=== PATIENT | female | born 1950 | race Caucasian/White ===

== ENCOUNTER → 2018-01-22 | Outpatient (CLI) | payer OTHER | LOC: RAD 12:46 | DX: J98.11 Atelectasis (principal); J98.4 Other disorders of lung; M47.894 Other spondylosis, thoracic region ==

== ENCOUNTER 2019-02-05 15:34 | Inpatient (IN) | payer OTHER ==
[~2019-02-05] VITALS: Ht 157.5 cm; Wt 89.9 kg
[2019-02-05 15:40] VITALS: BP 192/100
[2019-02-05 17:07] LABS: ABSOLUTE NEUTROPHILS 5.1 thou/uL (1.4-8.2); BASOPHILS 0.5 % (0.0-2.0); HEMATOCRIT 40.5 % (37.0-47.0); HEMOGLOBIN 13.5 gm/dL (12.0-15.0); MCH 30.1 pg (26.0-34.0); MCHC 33.2 g/dL (28.0-37.0); MCV 90.7 fL (80.0-100.0); MONOCYTES 3.8 % (1.0-8.0); PLATELET COUNT 207 thou/uL (150-400); POLYS 76.7 % (36.0-66.0); RBC 4.46 mil/uL (4.20-5.00); RDW 14.1 % (10.5-14.5); WBC 6.7 thou/uL (4.0-11.0)
[2019-02-05 17:16] LABS: ANION GAP 9 mmol/L (7-16); BUN 16 mg/dL (7-18); CALCIUM 9.7 mg/dL (8.5-10.1); CHLORIDE 103 mmol/L (98-107); CO2 28 mmol/L (21-32); GLUCOSE 182 mg/dL (74-106); POTASSIUM 4.4 mmol/L (3.5-5.1); SODIUM 140 mmol/L (136-145)
[2019-02-05 17:22] LABS: APTT 25.2 Seconds (24.5-32.8); PROTIME 10.7 Seconds (9.3-11.4); TROPONIN-I <0.06 ng/mL (<0.06)
[2019-02-05 18:32] VITALS: BP 168/84
[2019-02-05 18:51] VITALS: BP 177/100
[2019-02-05 19:12] VITALS: BP 160/141
--- NOTE | 2019-02-05 19:12 | NUR ---
REPORT RECEIVED FROM MANJULA BIRD IN ER. PT RECEIVED ON , RM# 359, CRITICAL CARE TELEMETRY STATUS WITH DIAGNOSIS: INCREASED WEAKNESS IN FACE AND ARMS, INCREASED COMORBIDITY R/T TRAMAUTIC BRAIN INJURY. PT ALERT, TALKING. SON PRESENT PROVIDING EMOTIONAL SUPPORT. REPORT GIVEN TO MANJULA LAWSON.
[2019-02-05 19:40] VITALS: BP 175/103
[2019-02-05] MEDS ORDERED: BRIVIACT50 MG PO (19:59)
--- NOTE | 2019-02-05 23:34 | NUR ---
PATIENT WAS A NEW ADMISSION TO THE UNIT THIS SHIFT. SHE ARRIVED VIA CART FROM THE ER AND WAS TRANSFERRED TO BED WITHOUT INCIDENT. PATIENT IS ALERT AND ORIENTED TIMES FOUR BUT IS FORGETFUL AND NOT THE BEST HISTORIAN. NURSE EDUCATED HER ON HOW TO USE CALL LIGHT FOR ASSISTANCE. PATIENT IS NON COMPLIANT AND UNSURE OF MEDICATIONS THAT SHE IS SUPPOSED TO TAKE. NURSE SPOKE WITH FAMILY AND ASKED IF THEY COULD BRING LIST. MEDICATION REC IS INCOMPLETE AT THIS TIME. NURSE TO CONTINUE WORKING ON IT AND WILL REACH OUT TO FAMILY EARLY TOMORROW, WELL ALERT ONCOMING NURSE OF MED REC STATUS. NURSE TO OTHERWISE COMPLETE ADMISSION AND INITIATE PLAN OF CARE.
[2019-02-06] VITALS: BP 144/88
[2019-02-06 04:30] VITALS: BP 150/95
[2019-02-06 07:23] VITALS: BP 134/78
--- NOTE | 2019-02-06 08:34 | EKG ---
[place] [address] [facility] [place] [address] ELECTROCARDIOGRAM REPORT Name: WILLKALA Room #: 359-P ADM IN M.R.#: [id number] ������������������ Admission: 02/05/19 ������������������ Attend Phys: Valery Kennedy MD Discharge: ������������������ Date of : 52 Report #: [id number] ����������������������������������������������������������������� [id number] THIS REPORT FOR: //name// [facility] ED Test Date: 2019-02-05 Test Time: 16:08:53 Pat Name: KALA SOLIS Department: Room: 359 Gender: F Prize Fighter: CONTRERAS : 1950 Requested By: Lucio Edwards Order Number: [id number] MD: Trevor Bell Measurements Intervals [place] Rate: 72 P: 48 [place]: 148 QRS: 30 QRSD: 91 T: QT: 396 QTc: 434 Interpretive Statements Sinus rhythm Nonspecific ST and T wave abnormality Compared to ECG 09/30/2001 13:39:37 No significant change was found Electronically Signed On 02-06-2019 8:34:20 CDT by Trevor Bell [email or web address] ��������������������������������������������� <ELECTRONICALLY SIGNED> ���������������������������������������� By: Trevor Bell MD, [facility] ��������������������������������������������� 02/06/19 0834 1608 160 Trevor Bell MD, [facility] /EPI
[2019-02-06] MEDS ORDERED: REQUIP 1 MG TABL1 M1 PO (08:46)
[2019-02-06] MEDS ORDERED: SYNTHROID137 MC1 PO (08:46)
[2019-02-06] MEDS ORDERED: AMLODIPINE BESY10 MG PO (08:46)
[2019-02-06] MEDS ORDERED: ALLOPURINOL 10100 M1 PO (08:46)
[2019-02-06] MEDS ORDERED: CARVEDILOL3.125 MG PO (08:47)
[2019-02-06] MEDS ORDERED: METFORMIN HCL500 MG PO (08:47)
[2019-02-06] MEDS ORDERED: LOSARTAN POTAS100 MG PO (08:48)
[2019-02-06] MEDS ORDERED: LYRICA150 MG PO (09:08)
[2019-02-06] MEDS ORDERED: PROTONIX40 M1 PO (09:09)
[2019-02-06] MEDS ORDERED: SINGULAIR 10 MG10 M1 PO (09:09)
[2019-02-06] MEDS ORDERED: PRAVACHOL20 MG PO (09:10)
--- NOTE | 2019-02-06 11:52 | NUR ---
PATIENT SEEN THIS DATE BY DR. TORRES FOR ACUTE REHAB CONSULT. AT THIS TIME UNABLE TO DETERMINE PATIENT'S NEED/APPROPRIATENESS FOR ACTUE REHAB. WILL CONTINUE TO FOLLOW AND REASSESS ON SATURDAY.
--- NOTE | 2019-02-06 13:57 | NUR ---
ASSUMED CARE OF PT AT 0700. PT HAS BEEN A&Ox4. PT IS EXTREMELY DIFFICULT TO UNDERSTAND AT TIMES D/T SEVERE SPEECH SLURRING. PT HAS BEEN UP TO CHAIR AND TO COMMODE WITH x1 ASSIST. PT IS NSR ON TELE. MED REC HAS BEEN COMPLETED. PT STILL NEEDS TO BE SEEN BY ST. POSSIBLE ASPIRATION AFTER DRINKING WATER. ST HAS BEEN CONSULTED. AWAITING FURTHER ASSESSMENT AND DIRECTION. SPOKE WITH SON NATO ON THE PHONE AND GAVE STATUS UPDATE. HE IS VERY CONCERNED ABOUT HER MENTAL HEALTH SITUATION AND WOULD LIKE TO SPEAK WITH PSYCH PROVIDER IF POSSIBLE. PT IS NOT YET PROGRESSING TOWARD POC GOALS. WILL CONTINUE TO MONITOR AND ASSESS.
[2019-02-06 16:09] VITALS: BP 153/87
--- NOTE | 2019-02-06 16:25 | NUR ---
INITIAL ASSESSMENT: Received consult due to pt not being able to take care of herself at home. STAR reviewed chart and spoke with nursing and attending physician. Pt was admitted from home due to LUE weakness/left facial weakness and facial droop. Therapy ordered to evaluate pt for recommendation for discharge disposition. Pt with hx of TBI. STAR met with pt at bedside. Introduced role of SW. Pt is alert/orientated to self and place. Pt reports she lives at home with her father in a mobile home. There are 5-6 steps to enter. Pt has a cane and walker to assist with ambulation. Pt's PCP is DR. Alfredo Akers. SW asked if her son, Lucio, could be contacted for additional information. Pt agreed. SW discussed need for possible rehab at time of discharge. Pt agreeable. Awaiting 5N consult. STAR spoke with pt's son, Lucio, via phone. Introduced role of STAR. Pt does live with her 95 yr old father. Pt fell down a flight of stairs in September of this year and landed on her head. Pt had three brain hemorrhages and was at [facility], then their inpt acute rehab for several weeks. Pt did not have HH after discharge. Pt's son states she has been not taking her medications correctly and has been "off her rocker." Family is trying to find a place for pt and her father. They are managing okay on their own, but pt becomes angry with family if they try to help her. Per Lucio, he is pt's DPOA. Lucio requests to speak with psychiatrist regarding pt's cognitive state. No weekend discharge planned. STAR is following to assist as needed with discharge planning.
[2019-02-06 20:02] VITALS: BP 171/95
[2019-02-07] VITALS (53 sets, daily range): BP systolic 123–215; BP diastolic 11–105
--- NOTE | 2019-02-07 03:40 | NUR ---
Pt. has been up most of the night and is restless. Often in room talking to herself and can become tearful at times. Pt. anxious about having another seizure. She has been up to the recliner chair per her request and then wants to get back into the bed. Currently in the bed with bed alarm on. Pt. does not always call for assistance. Took po meds with applesauce without difficulty. Meds given for anxiety (see emar) with little relief. Up to the comode with gait belt and walker. Pt. does have continuous drooling. Po tylenol given for c/o headache (see emar) with some relief noted.
--- NOTE | 2019-02-07 05:35 | NUR ---
Entered pt. room and went to give her am meds and pt. noted to have a 3 minute focal seizure. She has been up all shift with little sleep. Bed alarm is on. Dorie PALOOM called and notified.
--- NOTE | 2019-02-07 06:20 | NUR ---
Pt. observed to have another focal seizure. Pt. not responding,eyes rolled back and facial twitching. This lasted for about 3 minutes. Call placed to neuro.
--- NOTE | 2019-02-07 06:50 | NUR ---
Dr. Del Rio returned my call and she was notified of pt. seizure activity. New orders noted (see cpoe).
--- NOTE | 2019-02-07 10:42 | NUR ---
Assumed pt care at 7am.Pt in bed with slurred speech and drooling.Assessment completed.vss but elevated bp noted.Meds given as ordered with apple sauce. Oral care done.Depakote iv given for focal seizure.Dr Del Rio here,order noted. No seizure activity noted at this time.Will continue to monitor.
--- NOTE | 2019-02-07 10:58 | HC ---
[facility] [place] [address] CONSULTATION Name: KALA SOLIS Room #: 359-P [facility] IN .R.#: [id number] Admission: 02/05/19 ������������������ Attend Phys: Valery Kennedy MD Discharge: ������������������ Date of : 51 Report #: [id number] THIS REPORT FOR: //name// CC: Alfredo Kennedy HISTORY OF PRESENT ILLNESS: The patient is a 68-year-old female with right temporal lobe evacuation and craniotomy. The patient has dysarthria as well as weakness in the left upper extremity. The patient also has seizures and had been treated with Keppra; however, the patient felt that the medication was making her crazy. She stated that her father was on the medication, and she saw what it did to him. She sees Dr. Carrillo, and apparently, she could not get a visit until April, although what I understood from her was that the visit was moved up to March. She thought she had a different seizure medication in her bag, but she did not know what it was, although I see by reading the note that there is some mention of switching the patient from Keppra to Vimpat. PAST MEDICAL HISTORY: Traumatic brain injury, diabetes, pancreatitis, gout, hyperlipidemia, asthma, hypertension, hyperthyroidism, back pain. PAST SURGICAL HISTORY: Craniotomy. MEDICATIONS: At home include Briviact 50 mg b.i.d. ALLERGIES: None. VITAL SIGNS: Temperature is 37, pulse rate 78, respiratory rate 16, blood pressure 134/78, bedside pulse oximetry 93% on room air. LABORATORY DATA: Hematology: White blood cell count 6.7, hemoglobin 13.5, hematocrit 40.5. Chemistry: Sodium 140, potassium 4.4, chloride 103, carbon dioxide 28, BUN 16, creatinine 1, glucose 182. IMAGING STUDIES: CT scan of head shows post-surgical and post-traumatic changes in the right frontotemporal area. NEUROLOGIC: Cranial nerves 2-12 are grossly intact. Motor exam demonstrates symmetrical strength in all 4 extremities with the exception of the left upper extremity where she has a mild to moderate paresis. Reflexes are trace throughout. Plantar responses are flexor. Coordination reveals intact [id number]-ly-pcay, although this is performed much more slowly on the left. IMPRESSION: This patient has a history of seizure disorder following a traumatic brain injury with subsequent evacuation and craniotomy. She has developed a focal seizure disorder. I will have to speak to her daughter because the patient tells me she is on Keppra. When I see in her chart that she [address] [address] CONSULTATION Name: KALA SOLIS Room #: 359-P [facility] IN ..#: [id number] Admission: 02/05/19 ������������������ Attend Phys: Valery Kennedy MD Discharge: ������������������ Date of : 52 Report #: [id number] is actually on Briviact, which is a cousin medication to Keppra, but tends to have fewer side effects. If she already has Briviact in her possession, she should be allowed to take this medication as it is not on formulary here. Otherwise, I can put her on lacosamide 50 mg b.i.d., but I do think given her history, she should be taking some kind of antiepileptic medication. If I am able to speak to her daughter or a family member, I will put that in my progress note for the day. ��������������������������������������������� <ELECTRONICALLY SIGNED> ���������������������������������������� By: Lynda Del Rio DO ��������������������������������������������� 02/07/19 1058 1316 1534 Lynda Del Rio DO /nt
--- NOTE | 2019-02-07 17:40 | NUR ---
TUNNEL WORKER CALLED AT 1655 FOR SEIZURE LASTING 30MIN, DESPITE MEDS GIVEN. SEE TUNNEL WORKER FLOWSHEET FOR DETAILS. PT TRANSFERED TO ICU PER DR JONES ORDER. ROOM 240.
--- NOTE | 2019-02-07 19:24 | NUR ---
PT TO ROOM 240 PER FLOOR STAFF - PT SEIZING AND UNRESPONSIVE - VSS - DR BRIGGS AND DR PANDYA UPDATED ON STATUS - ORDERS RECEIVED - DR PANDYA PRESENTED AT BEDSIDE AND PT INTUBATED - IV TEAM AT BEDSIDE AND PLACEMENT OF CENTRAL LINE COMPLETED - FAMILY IN WAITING ROOM AND UPDATED ON PT STATUS
--- NOTE | 2019-02-07 19:27 | NUR ---
CONSULTED TO PLACE A CENTRAL LINE POST INTUBATION. ORDER AND CONSENT NOTED. THE RIGHT JUGULAR WAS WIDLEY PATENT. A #6F TRIPLE LUMEN CENTRAL LINE WAS PLACED PER HOSPITAL POLICY AFTER A BEDSIDE TIMEOUT WAS COMPLETE. LINE WAS 25CM AND ADVANCED WITHOUT DIFFICULTY. A STAT CHEST XRAY ORDERED TO CONFIRM PLACEMENT. RADIOLOGIST CONFIRMED LINE IN GOOD POSITION FOR USE.
[2019-02-07 19:47] LABS: BE(vivo) -1.6 mmol/L (-2 to +3); HCO3 23.3 mmol/L (22.0-26.0); PCO2 39.9 mmHg (35.0-45.0); PO2 277.2 mmHg (80.0-100.0); pH 7.384 (7.360-7.450); sO2 99.6 % (92.0-98.0)
[2019-02-07 21:21] LABS: HEMATOCRIT 40.1 % (37.0-47.0); HEMOGLOBIN 13.1 gm/dL (12.0-15.0); MCH 29.9 pg (26.0-34.0); MCHC 32.7 g/dL (28.0-37.0); MCV 91.3 fL (80.0-100.0); RBC 4.39 mil/uL (4.20-5.00); RDW 14.1 % (10.5-14.5)
[2019-02-07 21:45] LABS: CALCIUM 9.6 mg/dL (8.5-10.1); CREATININE 1.1 mg/dL (0.6-1.0); POTASSIUM 3.7 mmol/L (3.5-5.1)
[2019-02-08] VITALS (25 sets, daily range): BP systolic 110–176; BP diastolic 59–96
[2019-02-08 04:15] LABS: BE(vivo) 0 mmol/L (-2 to +3); PCO2 37.4 mmHg (35.0-45.0); PO2 95.3 mmHg (80.0-100.0); pH 7.426 (7.360-7.450); sO2 97.5 % (92.0-98.0)
--- NOTE | 2019-02-08 06:00 | NUR ---
REMAINS INTBATED AND SEDATED. SINUS RHYTHM. AFEBRILE. NO SEIZURE ACTIVITY NOTED. BATHED. HAD ONE LARGE BROWN LIQUID STOOL TONIGHT. WILL CONT TO MONITOR
[2019-02-08 06:08] LABS: HEMATOCRIT 37.6 % (37.0-47.0); HEMOGLOBIN 12.6 gm/dL (12.0-15.0); MCH 30.5 pg (26.0-34.0); MCHC 33.3 g/dL (28.0-37.0); MCV 91.4 fL (80.0-100.0); RBC 4.12 mil/uL (4.20-5.00); RDW 13.6 % (10.5-14.5); WBC 10.6 thou/uL (4.0-11.0)
[2019-02-08 06:17] LABS: CALCIUM 9.1 mg/dL (8.5-10.1); CREATININE 0.9 mg/dL (0.6-1.0); POTASSIUM 3.3 mmol/L (3.5-5.1)
--- NOTE | 2019-02-08 17:35 | HC ---
[facility] [place] [address] CONSULTATION Name: WILLKALA D Room #: 240-P [facility] IN .R.#: [id number] Admission: 02/05/19 ������������������ Attend Phys: Valery Kennedy MD Discharge: ������������������ Date of : 52 Report #: [id number] THIS REPORT FOR: //name// CC: Alfredo Kennedy PULMONARY CONSULTATION REFERRING PHYSICIAN: Dr. Eastman REASON FOR REFERRAL: Persistent seizure, need for airway protection. HISTORY OF PRESENT ILLNESS: The patient is a 68-year-old white female who was brought to the ED yesterday due to left upper extremity weakness, left-sided facial droop, dysphagia, blurred vision, headache and increased dysarthria. She was felt to have ongoing seizure disorder. She was admitted. The patient was felt to have poor compliance to medications. This afternoon, the patient was noted to be seizing again. Significant history is notable for traumatic brain injury, undergone right temporal craniotomy. This occurred following a fall from a ladder. She was hospitalized at [facility] earlier part of this year. Following the surgery, she has residual left-sided weakness, left facial droop, dysarthria, blurred vision and dysphagia. The patient has a history of questionable behavioral disturbance. She has a history of sleep apnea, but does not wear CPAP on a regular basis, reason the strap does not fit because of recent craniotomy. PAST MEDICAL HISTORY: As mentioned above including diabetes mellitus, pancreatitis, gout, fibromyalgia, asthma, sinusitis, hypertension, chronic back pain, hypothyroidism, ANGEL on CPAP but not compliant. PAST SURGICAL HISTORY: As mentioned above. ALLERGIES: None noted. HOME MEDICATIONS: List incomplete. CURRENT MEDICATIONS: In the hospital include Coreg 3.125 mg p.o. b.i.d., trazodone 100 mg p.o. at bedtime, Glucophage 500 mg p.o. b.i.d., insulin supplements, Vimpat 200 mg IV, Ativan 1 mg p.r.n. for seizures, Norvasc 10 mg once a day, Zyprexa 2.5 mg q.6 hours p.r.n., Zofran p.r.n., Protonix 40 mg once a day, Synthroid 137 mcg p.o. every day, valproic acid 240 mg IV q.8 hours, Xanax 0.25 mg t.i.d., allopurinol 100 mg once a day. [address] [address] CONSULTATION Name: KALA SOLIS Room #: [facility]#: [id number] Admission: 02/05/19 ������������������ Attend Phys: Valery Kennedy MD Discharge: ������������������ Date of : 52 Report #: [id number] FAMILY HISTORY: Noncontributory. SOCIAL HISTORY: Nonsmoker. No history of alcohol use. REVIEW OF SYSTEMS: Deferred as the patient is actively seizing. PHYSICAL EXAMINATION: GENERAL: She has tonic-clonic movements involving her left arm, some on the right arm. Eyes are open, but not responsive. She is gurgling. VITAL SIGNS: Temperature is 99.6 degrees Fahrenheit, pulse is 96, respiratory rate is 16, blood pressure is 146/100 mmHg, saturation is 89%. HEENT: Normocephalic, atraumatic. NECK: Supple, without any lymphadenopathy or thyromegaly. CHEST: Breath sounds are fair. Poor air movement as the patient appears to be actively seizing. CARDIOVASCULAR: Normal S1, S2. There are no murmurs or gallop. There is no JVD, no carotid bruit. Pulses 2+/4+ bilaterally. ABDOMEN: Soft, nontender, no organomegaly or masses felt. GENITOURINARY: Deferred. RECTAL: Deferred. EXTREMITIES: No cyanosis, clubbing, edema. NEUROLOGIC: She appears to have partial complex seizures. LABORATORY AND DIAGNOSTIC DATA: CT head shows chronic postsurgical posttraumatic changes in the right frontotemporal region. Chest x-ray on admission was unremarkable other than mild chronic lung changes. Electrolytes are normal. WBC 6700, hemoglobin 13.5. CBC is normal. IMPRESSION: 1. Seizure disorder following traumatic brain injury status post craniotomy. The patient is felt to have focal seizure disorder. Currently, she appears to be actively seizing for the past 2 hours. 2. Traumatic brain injury following a fall as mentioned above, undergone craniotomy. 3. Diabetes mellitus. 4. History of pancreatitis. 5. Gout. 6. Hypertension. 7. Fibromyalgia. 8. History of asthma. 9. History of sleep apnea, noncompliant with the CPAP. 10. Hyperthyroidism. 11. Chronic back pain. RECOMMENDATION: We will proceed with elective intubation once we have an IV [facility] [address] [place] [address] CONSULTATION Name: KALA SOLIS Room #: 240-P [facility] IN M.R.#: [id number] Admission: 02/05/19 ������������������ Attend Phys: Valery Kennedy MD Discharge: ������������������ Date of : 52 Report #: [id number] access and able to achieve adequate sedation. May need to address sleep apnea and asthma when the patient is stable. DVT and GI prophylaxis recommended. Thank you for this consultation. ��������������������������������������������� <ELECTRONICALLY SIGNED> ���������������������������������������� By: Osito Frazier MD ��������������������������������������������� 02/08/19 1735 1823 [id number] Osito Frazier MD /nt
[2019-02-09] VITALS (25 sets, daily range): BP systolic 112–181; BP diastolic 61–96
[2019-02-09 05:49] LABS: HEMATOCRIT 33.8 % (37.0-47.0); HEMOGLOBIN 11.4 gm/dL (12.0-15.0); MCHC 33.9 g/dL (28.0-37.0); MCV 91.6 fL (80.0-100.0); RBC 3.69 mil/uL (4.20-5.00); RDW 13.9 % (10.5-14.5); WBC 8.1 thou/uL (4.0-11.0)
--- NOTE | 2019-02-09 06:00 | NUR ---
remains intubated. propofol 10 mcg. vss sinus rhythm. lungs diminished will business development engineer on right and move right leg to command. basthed. will cont to monitor
[2019-02-09 06:22] LABS: CALCIUM 8.3 mg/dL (8.5-10.1); CREATININE 0.7 mg/dL (0.6-1.0); POTASSIUM 3.3 mmol/L (3.5-5.1); TOTAL BILIRUBIN 0.4 mg/dL (<0.1-1.0); TOTAL PROTEIN 6.4 g/dL (6.4-8.2)
--- NOTE | 2019-02-09 07:59 | NUR ---
Pt TRANSFERRED TO ICU. WILL PLACE ON HOLD AND AWAIT NEW ORDERS TO RESUME WHEN APPROPRIATE
--- NOTE | 2019-02-09 08:16 | NUR ---
PATIENT WILL BE PLACED ON HOLD FOR OCCUPATIONAL THERAPY DUE TO TRANSFER TO ICU. WILL AWAIT RESUME OT ORDERS WHEN PATIENT ABLE TO PARTICIPATE.
--- NOTE | 2019-02-09 10:17 | NUR ---
SW reviewed chart and spoke with nursing and attending physician. Pt was transferred to ICU from on 02/07 due to seizure activity. Pt was intubated. Cpap trials started today. 5N is following for possible admission to inpt acute rehab, when pt is medically stable. STAR is following to assist as needed with discharge planning.
[2019-02-09 10:47] LABS: BE(vivo) -4.9 mmol/L (-2 to +3); HCO3 20.3 mmol/L (22.0-26.0); PCO2 38.2 mmHg (35.0-45.0); PO2 113.7 mmHg (80.0-100.0); pH 7.344 (7.360-7.450)
--- NOTE | 2019-02-09 15:01 | NUR ---
DYSPHAGIA THERAPY PUT ON HOLD FOLLOWING PATIENT TRANSFER TO ICU AND CURRENTLY INTUBATED. WILL AWAIT NEW ORDERS WHEN APPROPRIATE.
--- NOTE | 2019-02-09 15:17 | NUR ---
PATIENT WAS ON THE VENT AND LIGHTLY SEDATED. FOLLOWS SOME COMMANDS WITH RIGHT SIDE. VITALS STABLE, HTN AND ANTIHYPERTENSIVED ADMINISTERED. CPAP TRIAL SUCCESSFUL AND PATIENT EXTUBATED AT 1240. STRIDOR NOTED AROUND 1400, DR LEDESMA NOTIFIED AND NEW ORDERS RECEIVED FOR STEROIDS AND BIPAP. RT NOTIFIED. PATIENT PLACED ON BIPAP AND DR. LEDESMA CAME TO THE UNIT AND ROUNDED ON PATIENT. PATIENT NOW OCCASIONALLY RESTLESS BUT OTHERWISE RESTING MOST OF THE AFTERNOON ON BIPAP. WILL CONTINUE TO MONITOR CLOSELY.
[2019-02-09 17:24] LABS: MAGNESIUM 2.2 mg/dL (1.8-2.4); POTASSIUM 4.1 mmol/L (3.5-5.1)
[2019-02-10] VITALS (24 sets, daily range): BP systolic 115–183; BP diastolic 48–93
--- NOTE | 2019-02-10 02:03 | NUR ---
GCS 13-14. OPENS EYES TO VOICE, FOLLOWS COMMANDS ABLE, ORIENTED TO PERSON. SILMULTANEOUSLY DROWSY AND RESTLESS. SPEECH SLURRED AND VOICE HOARSE. DIFFICULT TO UNDERSTAND AT TIMES. ADEQUATE STRENGTH AND PURPOSEFUL MOVEMENT OF RUE AND RLE. MINIMAL MOVEMENT OF LUE AND LLE. CANNOT FOLLOW COMMANDS USING LEFT EXTREMITIES. SINUS RHYTHM ON MONITOR. ADMINISTERED HYDRALAZINE FOR SBP > 160. O2 SAT > 92%. FACE SHIELD WITH FIO2 40% IN USE. WEAK COUGH. UNABLE TO EXPECTORATE SPUTUM. LUNGS COARSE TO AUSCULTATION. NPO EXCEPT FOR MEDS AND SIPS OF WATER. PT TOO LETHARGIC FOR PO INTAKE AT THIS TIME. DYER TO DD. ADEQUATE URINE OUTPUT. VITAL SIGNS AND ASSESSMENTS DOCUMENTED. WILL CONTINUE TO MONITOR.
[2019-02-10 10:13] LABS: TSH 0.81 uIU/mL (0.358-3.740)
--- NOTE | 2019-02-10 17:23 | NUR ---
STAR reviewed chart and spoke with nursing and attending physician. Pt was extubated yesterday and on O2 via NC. Pt sitting up in the chair and has worked with therapy. 5N is following for possible admission to inpt acute rehab. STAR spoke with pt's son, Lucio, via phone to provide update. Pt's son states he is hopeful pt will go to a rehab facility, but she will not be able to return home after rehab. Pt may need LTC or AL placement. STAR is following to assist as needed with discharge planning.
[2019-02-11] VITALS (23 sets, daily range): BP systolic 134–182; BP diastolic 57–101
--- NOTE | 2019-02-11 00:23 | NUR ---
GCS 14. OPENS EYES SPONTANEOUSLY. FOLLOWS COMMANDS ABLE. FORGETFUL TO CONFUSED. ORIENTED TO SELF AND AWARE SHE IS IN THE HOSPITAL. SIMULTANEOUSLY DROWSY AND RESTLESS. LEFT SIDED FACIAL DROOP. SLURRED SPEECH, HOARSE VOICE. DIFFICULT TO UNDERSTAND AT TIMES. LIMITED MOVEMENT OF LUE AND LLE. PT UNABLE TO FOLLOW COMMANDS USING LEFT EXTREMITIES, MIMIMAL PURPOSEFUL MOVEMENT. RUE AND RLL STRONG, PT MOVES RIGHT EXTREMITIES PURPOSEFULLY AND FOLLOWS COMMANDS. SINUS RHYTHM/SINUS TACH ON MONITOR. HYDRALAZINE ADMINISTERED FOR SBP > 160. O2 SAT > 92% ON 2L PER NC. LUNGS COARSE TO AUSCULTATION. PT HAS WEAK COUGH AND IS UNABLE TO EXPECTORATE SPUTUM. PT IS STRICT NPO AFTER FAILING SPEECH EVAL ON 02/10. STANDS AND PIVOTS TO CHAIR X2 ASSIST. VITAL SIGNS AND ASSSESSMENTS DOCUMENTED. WILL CONTINUE TO MONITOR.
[2019-02-11 04:59] LABS: HEMATOCRIT 36.9 % (37.0-47.0); HEMOGLOBIN 12.4 gm/dL (12.0-15.0); MCH 30.4 pg (26.0-34.0); MCHC 33.7 g/dL (28.0-37.0); MCV 90.2 fL (80.0-100.0); RBC 4.09 mil/uL (4.20-5.00); RDW 13.8 % (10.5-14.5); WBC 10.9 thou/uL (4.0-11.0)
[2019-02-11 05:01] LABS: PLATELET COUNT 267 thou/uL (150-400)
--- NOTE | 2019-02-11 05:11 | NUR ---
INCREASED PURPOSEFUL MOVEMENT NOTED IN LUE AND LLE. PERIOD OF ANXIETY OVERNIGHT. ADMINISTERED LORAZEPAM. PT'S ANXIETY MANAGED AT THIS TIME WITHOUT OVERSEDATION.
[2019-02-11 05:25] LABS: BE(vivo) 1.1 mmol/L (-2 to +3); HCO3 24.6 mmol/L (22.0-26.0); PCO2 35.5 mmHg (35.0-45.0); PO2 66.7 mmHg (80.0-100.0); pH 7.458 (7.360-7.450); sO2 94.3 % (92.0-98.0)
[2019-02-11 05:50] LABS: ABSOLUTE NEUTROPHILS 9.3 thou/uL (1.4-8.2); ANISOCYTOSIS 1+; POIKILOCYTOSIS 1+
--- NOTE | 2019-02-11 10:30 | NUR ---
UP TO CHAIR WITH ONE ASSIST USING GAIT BELT AND WALKER. AMBULATED 3 FEET TO CHAIR WITH GOOD TOLERATION OF ACTIVITY. DOBHOFF TUBE INSERTED RIGHT NARE FOR FEEDINGS. KUB ORDERED TO CONFIRM PLACEMENT.
--- NOTE | 2019-02-11 11:22 | NUR ---
ENTERAL TUBE FEEDING PLACEMENT CONFIRMED AND STARTED VITAL HP AT 20mL/HR WITH GOAL RATE OF 55mL/HR. EEG BEING PERFORMED AT BEDSIDE.
--- NOTE | 2019-02-11 12:21 | NUR ---
SEIZURE ACTIVITY NOTED ON EEG - DR. JONES NOTIFIED AND 0.5 OF LORAZAPAM GIVEN. HUMAN RESOURCE STATISTICIAN REPORTED THAT THIS DID NOT STOP THE SEIZURE ACTIVITY ON EEG. PT DROWSY AND MUMBLING INCOMPREHENSIBLE SPEECH
--- NOTE | 2019-02-11 12:53 | NUR ---
PRN DOSE IVP HYDRALAZINE GIVEN FOR B/P 182/87
--- NOTE | 2019-02-11 20:01 | NUR ---
ASSISTED TO BSC EXPELLED MOD AMOUT LIQUID STOOL. SPEECH CONTINUES TO BE DIFFICULT TO UNDERSTAND. DENIES PAIN. DYER TO DD WITH CLEAR URINE OUTPUT.
[2019-02-12] VITALS (21 sets, daily range): BP systolic 131–205; BP diastolic 57–141
--- NOTE | 2019-02-12 00:42 | NUR ---
GCS 14. ORIENTED TO SELF, AWARE SHE IS IN THE HOSPITAL. FORGETFUL. EXTENT OF CONFUSION FLUCTUATES. LEFT FACIAL DROOP. SLURRED SPEECH. LEFT SIDED WEAKNESS. GROSS MOTOR TO LUE AND LLE. NO MOBILITY LIMITATIONS TO RUE AND RLE. STRENGTH OF LUE AND LLE HAS INCREASED IN THE PAST 24 HOURS. PERIOD OF INCREASED AGITATION AND OVERNIGHT, DURING WHICH PT BECAME FEARFUL AND PARANOID. AMINISTERED ZYPREXA. PT IS NOW CALM AND STATES THAT SHE FEELS SAFE. SINUS RHYTHM ON MONITOR. RECEIVING HYDRALAZINE FOR SBP > 160. PT TOLERATING ROOM AIR. WEAK COUGH. PT STILL UNABLE TO EXPECTORATE SPUTUM. NPO. DOBHOFF TO R NARE. VITAL HIGH PROTEIN AT 20ML/HR (GOAL 55). UP TO CHAIR AND BSC X2 ASSIST. VITAL SIGNS AND ASSESSMENTS DOCUMENTED. WILL CONTINUE TO MONITOR.
--- NOTE | 2019-02-12 10:27 | NUR ---
VASCULAR ACCES TEAM ASSESSED NEED FOR CENTRAL LINE, PT REMAINS IN ICU WITH SEVERAL MEDS. LINE REMAINS APPROPRIATE AT THIS TIME
--- NOTE | 2019-02-12 15:18 | NUR ---
SW reviewed chart and spoke with attending physician. Pt remains NPO at this time and has dobhoff in place. STAR discussed case with 5N rn rehabilitation, who will continue to follow for admission to inpt acute rehab when medically stable. Pt remains NPO. Pt may transfer out of ICU. SW is following to assist as needed with discharge planning.
[2019-02-13 04:20] VITALS: BP 187/87
--- NOTE | 2019-02-13 05:25 | NUR ---
END OF SHIFT SUMMARY: No progress toward goals at this time. Pt remains very confused and restless; pulled out RI PICC at beginning of shift. IV therapy able to regain access using ultrasound. Dobb-Mj remains patent; tube feeding titrated up to goal rate of 55 cc/hr. Pt tolerating well. Pt had two soft unformed stools this shift. Remains on room air, sat > 90%, breath sounds remain diminished. No seizures this shift. Monitor remains sinus rhythm. Pt has slept less than 2 hours this shift -- has been continuously talking to self, calling out for family or a general car yard supervisor, also has attempted OOB several times. Skin integrity remains intact. Logan patent, 1800 cc out this shift.
[2019-02-13 08:22] VITALS: BP 187/97
--- NOTE | 2019-02-13 11:44 | NUR ---
VASCULAR ACCESS TEAM CONSENT OBTAINED. DL PICC PLACED TO R BRACHIAL VEIN WITH U.S GUIDANCE PER HOSPITAL P&P. VEIN CANNULATED WITH ONE ATTEMPT. GUIDEWIRE ADVANCED EASILY. VESSEL DILATED. GUIDEWIRE REMOVED INTACT. DL PICC TRIMMED AND INSERTED TO 40CM OCM EXTERNAL. BOTH LUMENS FLUSH AND DRAW EASILY. PATIENT TOLERATED PROCEDURE WELL. CXR CONFIRMATION OF LINE PLACEMENT. PICC RELEASED FOR IMMEDIATE USE TO RN.
[2019-02-13 13:44] LABS: HEMATOCRIT 34.9 % (37.0-47.0); HEMOGLOBIN 11.8 gm/dL (12.0-15.0); MCH 30.7 pg (26.0-34.0); MCHC 33.8 g/dL (28.0-37.0); MCV 90.8 fL (80.0-100.0); PLATELET COUNT 222 thou/uL (150-400); RBC 3.84 mil/uL (4.20-5.00); RDW 13.1 % (10.5-14.5); WBC 7.7 thou/uL (4.0-11.0)
[2019-02-13 14:04] LABS: ALBUMIN 3.1 g/dL (3.4-5.0); CALCIUM 9.4 mg/dL (8.5-10.1); CREATININE 0.9 mg/dL (0.6-1.0); POTASSIUM 3.2 mmol/L (3.5-5.1); TOTAL BILIRUBIN 0.2 mg/dL (<0.1-1.0)
[2019-02-13 14:41] LABS: ABSOLUTE NEUTROPHILS 6.9 thou/uL (1.4-8.2); ANISOCYTOSIS 1+; METAMYELOCYTES 3 %
--- NOTE | 2019-02-13 15:50 | NUR ---
Message left for 5N liason regarding reevaluation for acute rehab admission. Pt was advanced to a po diet today with strict supervision. Awaiting therapy treatment today as she was not able to be seen earlier d/t picc line placement. Pt a little confused this am and pulled out IJ. More appropriate this afternoon and able to converse with staff. Will follow.
--- NOTE | 2019-02-13 16:26 | NUR ---
MANAGER ACTION REPORTED THAT PATIENT HAS BEEN STARTED ON A DIET. PATIENT DID NOT HAVE THERAPY THIS DATE. WILL REASSESS SATURDAY TO SEE HOW PATIENT IS TOLERATING/ADVANCING IN DIET, COGNITIVE/BEHAVIORAL STATUS AND FUNCTIONAL STATUS/PARTICIPATION IN THERAPY. THANK YOU FOR THIS REFERRAL.
[2019-02-13 16:30] VITALS: BP 155/100
[2019-02-13 19:25] VITALS: BP 166/97
--- NOTE | 2019-02-13 19:57 | NUR ---
ASSESSMENT CHARTED, PATIENT CONFUSED AND COMBATIVE,DOUBLE LUMEN PICC PLACED IN UPPER RIGHTARM, SEVERAL ATTEMPTS TO GET OUT OF BED, TRANSFERRED TO CHAIR, ATTEMPTED TO GET OUT. SALINE LOCK IN RIGHT FOREARM, FEEDING TUBE DC'D, PATIENT PASSED SWALLOW TEST. WILL CONTINUE TO JOSHUA
[2019-02-14] VITALS (7 sets, daily range): BP systolic 122–192; BP diastolic 66–110
--- NOTE | 2019-02-14 05:10 | NUR ---
PT NOW RESTING COMFORTABLE IN BED. PT HAS BEEN RESTLESS AND IMPULSIVE MOST OF THE SHIFT. PT SR ON MONITOR. PT NEURO STATUS REMAINS UNCHANGED. PT CONTINUES WITH MAITENANCE IVFs.
--- NOTE | 2019-02-14 15:02 | NUR ---
VSS REMAINS NSR, BP STABLE. PT REMAINS LETHARGIC TODAY, PT WILL MUMMBLE IF SHAKEN ARM VIGOROUSLY, PT GIVEN ATIVAN 1MG AT 0300, PT NOT WAKING UP SUFFICIENTLY FOR SAFE FEEDING. PT TURNED IN BED EVERY 2 HOURS, LUNGS DIMINISHED AND CLEAR. O2 SAT RA IS 92-94%, WILL CONTINUE TO MONITER AND CARE FOR PT PER PLAN OF CARE
[2019-02-15 04:14] VITALS: BP 163/93
--- NOTE | 2019-02-15 06:11 | NUR ---
ASSUMED CARE OF PT AT 1900. PT ORIENTED TO SELF. CONFUSED AND IMPULSIVE AT TIMES. PT ABLE TO FOLLOW COMMANDS. PT CONSTANTLY TALKING TO SELF. SHE DOES MAKE REASONABLE STATEMENTS AT TIMES LIKE, "I PULLED MY IV OUT," BUT OTHER TIMES PT JUST HAS WORD SALAD. VSS. MARGINAL UO. WILL CONTINUE TO MONITOR.
[2019-02-15 07:22] VITALS: BP 135/82
[2019-02-15 17:19] VITALS: BP 133/90
--- NOTE | 2019-02-15 17:24 | NUR ---
ASSUMED CARE OF PATIENT AT 0700. PATIENT IS A&O X SELF. SHE CURRENTLY HAS HER LEFT ARM IN A RESTRAINT TO KEEP HER FROM PULLING OUT HER PICC LINE. HER RIGHT ARM IS FREE AND SHE IS ABLE TO MOVE IT ABOUT. HER RESTRAINT WAS REEVALUATED Q 2 HOURS. SHE IS COMPLAINING OF A RIGHT SIDED HEADACHE AND TREATED WITH IV MORPHINE. THE MEDICATION ALLOWED HER TO GO TO SLEEP. SHE RESTED COMFORTABLY MORE OF THE DAY AND BECAME AGGITATED AROUND 1600. ACCORDING TO THE FAMILY, THIS HAS BEEN A PATTERN IN THE AFTERNOONS. THIS INFORMATION WAS PASSED ALONG TO THE DOCTOR. HER SPEECH MAKES SENSE AT TIMES HOWEVER THE MAJORITY OF THE TIME, I AM NOT ABLE TO MAKE HEADS OR TALES OF WHAT SHE IS TALKING ABOUT. PATIENT IS ON A PUREED DIET, HOWEVER SHE IS NOT FOND OF OUR FOOD. PATIENT IS TO CONTINUE WITH POC.
[2019-02-15 19:20] VITALS: BP 149/64
--- NOTE | 2019-02-16 04:07 | NUR ---
ASSESSMENT CHARTED. VSS. PT C/O RIGHT SIDE HEAD PAIN CONTROLED WITH PRN MORPHINE PER EMAR. PT GETS AGITATED AND IMPULSIVE, GRABBED MY HAND AND SPOON AND THREW THEM. TRIED TO PULL OUT DELFIN PICC BUT WAS ABLE TALK PATIENT DOWN. ALERT TO SELF, CONFUSED AND FORGETFUL, SLURRED SPEACH AT TIMES. REFUSED FOOD, TOLERATED SOME THICKENED WATER WITH MEDS. PT DID HELP TURN WHEN ASKED. FLUIDS RUNNING PER EMAR. DYER IN PLACE DRAINING YELLOW URINE. PLAN TO CONTINUE WITH POC WILL MONITOR.
[2019-02-16 06:33] VITALS: BP 164/78
[2019-02-16 08:41] VITALS: BP 175/72
--- NOTE | 2019-02-16 09:43 | NUR ---
PATIENT CARE ASSUMED AT 7AM. ASSESSMENT CHARTED, VSS, PATIENT CONFUSED, COMBATIVE, UNCOOPERATIVE, WILL NOT EAT BREAKFAST OR TAKE PO MEDS.
--- NOTE | 2019-02-16 12:31 | EEG ---
[facility] [place] [address] ELECTROENCEPHALOGRAM Name: KALA SOLIS Tiffany Room #: 202-P ADM IN M.R.#: [id number] ������������������ Admission: 02/05/19 ������������������ Attend Phys: Shell Causey Discharge: ������������������ Date of : 52 Report #: [id number] ����������������������������������������������������������������� [id number] THIS REPORT FOR: //name// CC: Alfredo Kennedy DATE OF SERVICE: 02/11/2019 This patient is being evaluated for the possibility of seizure. EEG was done by placing the electrode by standard 10-20 system of electrode placement. Both referential and sequential montages were used for recording. Background activity on the left side is about 9 Hz and 25 microvolt. On the right side, the EEG is poorly formed. It appeared to be showing spike and slow wave activity. Part of the activities shown on the right side is breach rhythm, but epileptiform activity appeared to be present on top of that. The patient did go to sleep that is associated with bilateral slowing and vertex sharp waves. IMPRESSION: This is an abnormal EEG because it demonstrate epileptiform activity arising from the right cerebral hemisphere. Epileptiform activity is always difficult to tell when breach rhythm is present as is in this patient, but this EEG does appear to be showing epileptiform activity in addition to breach rhythm. Clinical correlation is recommended. Thank you very much for this referral. ���������������������������������������� <ELECTRONICALLY SIGNED> ���������������������������������������� By: Minesh Hernandes MD ��������������������������������������������� 02/16/19 1231 [id number] 0718 Minesh Hernandes MD /steff
--- NOTE | 2019-02-16 14:31 | NUR ---
Discharge Planning: dp sent an initial referral to [facility] fax [phone]. DP will can facility to make sure they received.
[2019-02-16 16:00] VITALS: BP 162/92
--- NOTE | 2019-02-16 16:32 | NUR ---
STAR reviewed chart and spoke with nursing and attending physician. Pt is out of restraints and is progressing towards goals for discharge. STAR discussed case with certified rehabilitation counselor, who has been following for admission to in acute rehab. Pt was unable to work with therapy earlier today. Awaiting decision from if they are able to accept pt. STAR spoke with pt's son, Lucio, via phone to provide update. STAR discussed alternate in acute rehab options, should not be able to accept pt. Options provided. Pt's son is agreeable with [facility] and requests psych be consulted at rehab. transportation planner faxed referrals. STAR contacted [facility] liaison, who states that kiel does not see pts at their facilities. STAR discussed with THANIA friedman, who states that psych can be consulted. THANIA is able to accept pt and will submit for insurance authorization tomorrow if is unable to accept. STAR updated pt's nurse and attending physician. STAR is following to assist as needed with discharge planning.
--- NOTE | 2019-02-16 17:04 | NUR ---
PATIENT SEEN BY DR. TORRES THIS AM. PATIENT IS NOT APPROPRIATE AT THIS TIME FOR ACUTE REHAB ADMISSION. 5N WILL CONTINUE TO FOLLOW AND PATIENT WILL BE CONSIDERED AGAIN FOR A CANDIDATE ONCE PATIETN IS EATING BETTER AND IS ABLE TO CONSISTENTLY COOPERATE WITH THERAPY. MEDICAL LAB TECH INSTRUCTOR INFORMED OF ABOVE. THANK YOU FOR THIS REFERRAL.
--- NOTE | 2019-02-16 18:15 | NUR ---
PATIENT HAS BECOME MORE COOPERATIVE AND CALMER, LUNCH WAS FED TO HER AND SHE ATE 1/3. EVENING MEAL SHE FED HERSELF, ATE 1/3 AND ICE CREAM.
[2019-02-16 19:57] VITALS: BP 148/72
--- NOTE | 2019-02-17 03:10 | NUR ---
ASSESSMENT CHARTED. VSS. PT AGIATED AND CONFUSED, NOT COMBATIVE TONIGHT. ABLE TO USE THERAPUTIC COMMUNICATION TO CALM PT. PT C/O R HEAD PAIN CONTROLED WITH PRN MEDS PER EMAR. PT FEED HERSELF THICKENED LIQUIDS AND TOLERATED TAKING PILLS WELL. PT HELPED TURN SELF IN BED FOR TORRI CARE. WILL CONTINUE TO MONITOR AND WITH POC.
[2019-02-17 04:54] VITALS: BP 166/79
[2019-02-17 09:16] VITALS: BP 148/69
--- NOTE | 2019-02-17 09:26 | NUR ---
ASSUMED CARE OF PT APPROX 0715, ALERT TO SELF/BDATE/PRESIDENT, HOSPITAL NAME ALEXIS. PLEASANT THUS FAR, IS NOT IMPULSIVE. ON AND . C/O PAIN GENERALIZED BY AGREEING TO THE OFFER OF TYLENOL. SEE INTERVENTION FOR ASSESSMENT, CARDIAC MONITORED. BEING MOVED TO THE CHAIR, EXHAUST MACHINE OPERATOR FED PT, SWALLOWS SUCCESSFULLY THUS FAR, SLOW W/MED ADM AND FEEDING
--- NOTE | 2019-02-17 12:26 | NUR ---
5N accepting of patient pending auth. Sp with son Lucio updated 5N accepting also updated if rec auth today then planned admission to 5n today.
[2019-02-17 12:53] VITALS: BP 158/80
[2019-02-17] MEDS ORDERED: DIVALPROEX SOD500 M1 PO (14:58)
[2019-02-17] MEDS ORDERED: ACETAMINOPHEN325 M1 PO (14:58)
[2019-02-17] MEDS ORDERED: VIMPAT100 MG PO (14:58)
[2019-02-17] MEDS ORDERED: IPRAT-ALBUT 0.5-3 ML INH (14:58)
[2019-02-17] MEDS ORDERED: COREG6.25 MG PO (14:58)
[2019-02-17] MEDS ORDERED: HYDROCODON-ACE1 EAC7 PO (14:58)
[2019-02-17] MEDS ORDERED: COLCHICINE0.6 M1 PO (14:58)
[2019-02-17] MEDS ORDERED: PEPCID20 MG PO (14:58)
[2019-02-17] MEDS ORDERED: OLANZAPINE ODT5 MG PO ×3 (14:58)
[2019-02-17] MEDS ORDERED: TRAZODONE HCL100 MG PO (14:58)
[2019-02-17] MEDS ORDERED: ENOXAPARIN40 MG/0.1 SUBQ (15:21)
--- NOTE | 2019-02-17 16:12 | NUR ---
REC ORDERS FOR PT'S D/C. WILL GIVE REPORT TO PINEDA Gaytan RN AND SEND ALL CHART INFO/DC/RX UP WITH PT WHO WILL SOON BE D/C'D, TELE WILL BE REMOVED AND AFTER REVIEW OF PO VERSUS IV MEDS, WILL REMOVE PICC LINE IF APPLICABLE
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
== END 2019-02-17 16:45 | DRG 100 ==
LOC: ER 15:34 → EROBS 18:14 → ICU 18:14 → 2N 18:14 → 3W 18:51 → ICU 02-07 17:39 → 2N 02-12 16:18 → ENTRNSPT 02-17 16:25 → 2N 02-17 16:45
PROVIDERS: Emergency Medicine; Hospitalist; Internal Medicine; Internal Medicine Pulmonary Disease; Pediatrics; Psychiatry & Neurology Neurology; ADMIT Internal Medicine
DX: G40.101 Localization-related (focal) (partial) symptomatic epilepsy and epileptic syndromes with simple partial seizures, not intractable, with status epilepticus (principal); J96.01 Acute respiratory failure with hypoxia; G92 Toxic encephalopathy; E11.9 Type 2 diabetes mellitus without complications; M10.9 Gout, unspecified; E78.5 Hyperlipidemia, unspecified; M79.7 Fibromyalgia; J45.909 Unspecified asthma, uncomplicated; I10 Essential (primary) hypertension; M54.5 Low back pain; E66.01 Morbid (severe) obesity due to excess calories; R13.10 Dysphagia, unspecified; R47.1 Dysarthria and anarthria; E87.6 Hypokalemia; G47.33 Obstructive sleep apnea (adult) (pediatric); G89.29 Other chronic pain; E05.90 Thyrotoxicosis, unspecified without thyrotoxic crisis or storm; Z87.820 Personal history of traumatic brain injury; Z68.36 Body mass index [BMI] 36.0-36.9, adult; Z91.81 History of falling; Z91.19 Patient's noncompliance with other medical treatment and regimen; Z79.899 Other long term (current) drug therapy
CPT/HCPCS: 10078; 10081; 10203; 10879; 27000

== ENCOUNTER 2019-02-17 15:18 | Inpatient (IN) | payer OTHER ==
[~2019-02-17] VITALS: Ht 157.5 cm; Wt 94.3 kg
[~2019-02-17 15:18] MED LIST: ACETAMINOPHEN325 M1 PO; ALLOPURINOL 10100 M1 PO; AMLODIPINE BESY10 MG PO; BRIVIACT50 MG PO; CARVEDILOL3.125 MG PO; COLCHICINE0.6 M1 PO; COREG6.25 MG PO; DIVALPROEX SOD500 M1 PO; HYDROCODON-ACE1 EAC7 PO; IPRAT-ALBUT 0.5-3 ML INH; LOSARTAN POTAS100 MG PO; LYRICA150 MG PO; METFORMIN HCL500 MG PO; OLANZAPINE ODT5 MG PO; PEPCID20 MG PO; PRAVACHOL20 MG PO; PROTONIX40 M1 PO; REQUIP 1 MG TABL1 M1 PO; SINGULAIR 10 MG10 M1 PO; SYNTHROID137 MC1 PO; TRAZODONE HCL100 MG PO; VIMPAT100 MG PO
[2019-02-17] MEDS ORDERED: ENOXAPARIN40 MG/0.1 SUBQ (15:21)
--- NOTE | 2019-02-17 17:50 | NUR ---
1700 ADMITTED TO ROOM 514. PATIENT IS ALERT AND ORIENTED TO PERSON, AND SON. PATIENT HAS LEFT SIDED WEAKNESS AND GOUT IN HER LEFT HAND. LUNGS ARE CLEAR AND DEMINISHED. PATIENT IS ON 02 AT 2L PER N/C. ABD IS SOFT WITH BSX4. PATIENT HAS FOLELY TO DD, DRAINING ERIC COLORED URINE. PATIENT C/O HER FEET HURTING. PAIN MEDS ARE NOT EFFECTIVE. PATIENT IS TOTAL FEED R/T GOUT IN HER LEFT HAND. EVALS TO BE DONE IN A.M. SON AT BEDSIDE. FALL AND SAFETY PROTOCOLS IN PLACE. DENIES PAIN AT THIS TIME. CALL LIGHT IN REACH. WILL CONTINUE TO MONITER.
[2019-02-17 19:45] VITALS: BP 151/69
--- NOTE | 2019-02-18 02:45 | NUR ---
PT ASSESSMENT COMPLETED AND VSS. MEDS GIVEN ORDERED AND WELL TOLERATED WITH APPLESAUSE. PT VERY CONFUSED. PT SAID REPEATEDLY THAT SHE WANTS TO . PRN PAIN MEDICATION HELPFUL FOR BACK AND HAND PAIN. REPOSITIONED FREQUENTLY USING PILLOWS FOR COMFORT. PT YELLING OUT AND TRYING TO GET UP DURING THE NIGHT. PROVIDED MUCH EMOTIONAL SUPPORT. DYER DRAINING YELLOW URINE. SLEEPING AT THIS TIME. WILL CONTINUE TO MONITOR FREQUENTLY.
[2019-02-18 05:31] LABS: HEMATOCRIT 33.4 % (37.0-47.0); HEMOGLOBIN 11.1 gm/dL (12.0-15.0); MCH 30.3 pg (26.0-34.0); MCHC 33.2 g/dL (28.0-37.0); MCV 91.4 fL (80.0-100.0); RBC 3.65 mil/uL (4.20-5.00); RDW 13.6 % (10.5-14.5); WBC 9.4 thou/uL (4.0-11.0)
[2019-02-18 05:44] LABS: CREATININE 0.8 mg/dL (0.6-1.0); POTASSIUM 3.5 mmol/L (3.5-5.1)
[2019-02-18 08:10] VITALS: BP 146/73
--- NOTE | 2019-02-18 10:00 | NUR ---
RECIEVED ORDER BY RULING MACHINE FEEDER FOR PROTECTIVE HELMET. ORDER WAS FAXED TO [facility] AND CALL PLACED. IVET AT [facility] CONFIRMED THAT SHE RECIEVED THE ORDER. RN WAS NOTIFIED THAT THIS HAS BEEN ORDERED, AND WE HAVE BEEN ADVISED THAT IT COULD TAKE 3 DAYS.
--- NOTE | 2019-02-18 10:19 | NUR ---
chart review, nitza visited with pt at bedside, she up in wheel chair, bedside nurse in room as well, pt leaning to left when up in wheel chair. pt a & o 2-3 with some forgetfulness and confusion. pt asked what city she in and if could see fire works outside tomorrow. pt reported she cares for her dad at [place], : mobile home 1-2-3 step into home. have walker, dad has walker with seat on it. was driving till this happen. daughter darlyn is taking care of dad while here. we will need some help now and i am ok with that, need more suzanne's. no hh or rehab prior to hospital. dad has had home health in past. have primary dr. manage own medication, cooking and cleaning"/suzanne. noted in chart family mention pt not taking medication at home. nursing accounts payable supervisor and bedside nurse assisted pt to bsc, pt unable to pull down own depends, rn nitza assisted and pt was able to sit on bsc, she wanted pillow behind her back, pt stated had to up restroon. ot came to work with pt as well. pt with assistance off bsc and back into wheel chair. letting pt work with ot and will cont following as needed for dc needs. left message for son lisa.
--- NOTE | 2019-02-18 15:16 | NUR ---
ASSUMED CARES AT 0700. PT SLEEPY, ORIENTED TO SELF AND PLACE ONLY, CONFUSED. SLURRED SPEECH. VITALS REMAINED STABLE. DENIES PAIN. HELMET ORDERED AND IN PLACE R/T CRANIOECTOMY OF RIGHT PARIETAL AND TEMPORAL LOBES. PT CONTINUES TO HAVE LEFT SIDED HEMIPARESIS, TENDS TO LEAN ON LEFT SIDE WHEN TRANSFERING ON IN CHAIR. MOUTH CARE DONE PARTIALLY THIS AM PT REFUSED, TONGUE REMAINS WHITE AND TEETH HAVE THICK COATING OF FOOD, CONTINUE TO ENCOURAGE ORAL CARE. PT REMAINS ON ASPIRATION PRECAUTION, NEEDS 100% WITH FEEDING AND 100% SUPERVISION WITH ALL MEALS. DYER REMAINS INTACT AND PATENT, URINE IS DARK YELLOW AND SEDIMENT NOTED, FLUSHED*1 WITH NS TO MAINTAIN PATENCY. CONTINUES TO HAVE BLE, EXTREMITIES ELEVATED. UP WITH 1-2 MIN ASSIST PIVOT TRANSFERS AND TOLERATED WELL. ROOM BY NURSE'S STATION. Q1H VISUAL CHECKS. CALL LIGHT WITHIN REACH. FALL PRECAUTIONS IN PLACE
[2019-02-18 19:20] VITALS: BP 158/74
--- NOTE | 2019-02-19 02:15 | NUR ---
assumed care at approx 1900 evening 02/18. pt lying in bed with head of bed elevated at change of shift. pt confused and talkative somewhat rambling on with inconsistent sentences. son visited for short time before hs meds given. [place] to dd with yellow urine to bag. pt took hs meds with applesauce and pt c/o pain to left hip/leg when turning. pt woke up for short time appeared to be talking in her sleep but now back to sleep. bed alarm on and call light in reach. will continue to monitor.
--- NOTE | 2019-02-19 04:46 | NUR ---
pt awoke asking for something for her nose. nasal spray given to pt to use and also given honey thick liquid for dry mouth. pt continued to be loud calling out talking repeatedly and rambling on with her words. pt repositioned and encouraged to try and get some sleep. pt continued to call out talking about her bird at home and a dog that needed to be cared for. pt given zyprexa prn as ordered. call light in reach and bed alarm on. will continue to monitor.
[2019-02-19 08:15] VITALS: BP 137/58
--- NOTE | 2019-02-19 20:16 | NUR ---
ASSUMED CARE OF PT AT 0715. PT IS A&OX1 AND VITAL SIGNS ARE STABLE. PT HAS SIGNIFICANT LEFT SIDED HEMIPARESIS, DYSARTHRIA, AND GENERALIZED NON-PITTING EDEMA. MEDICATIONS WHOLE IN APPLESAUCE, HONEY THICK LIQUIDS. ACCU CHECKSS ACHS AND MANAGED WITH PO MEDICAITONS, DYER CATHETER IN PLACE AND SECURED TO LEG. DOUBLE LUMEN PICC TO RIGHT UPPER ARM, FLUSHES APPROPRIATELY, DRESSING C/D/I, W/O S/S. PATIENT MADE MULTIPLE THREATS TO STAFF DURING SHIFT STATING THAT SHE WANTS TO KICK THEM, PUNCH THEM, AND POUR URINE ON THEM. NURSE TALKED WITH PATIENT AND REMINDED PATIENT THAT IT IS INAPPROPRIATE TO THREATEN STAFF, PATIENT AGREED TO REFRAIN FROM MAKING FURTHER THREATENING STATEMENTS TO STAFF. SEIZURE PRECAUTIONS IN PLACE FOR HX OF SEIZURES, AND FALL PRECAUTIONS IN PLACE. NURSING WILL CONTINUE TO MONITOR.
[2019-02-19 20:21] VITALS: BP 152/70
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
[2019-02-20 08:09] VITALS: BP 155/82
--- NOTE | 2019-02-20 14:54 | NUR ---
ASSUMED CARE OF PT AT 0715. NIGHT NURSE SAID PT HAD A ROUGH NIGHT. HAS TO HAVE A SITTER. PT IS A&OX1 AND VITAL SIGNS ARE STABLE. REFUSED THERAPY THIS AM. C/O HEADACHE AND GENERALIZED PAIN THIS AM. MORNING MEDS AND PRN HYDROCODONE GIVEN ONE AT THE TIME WITH APPLE SAUCE CONTINUE TO BE ON HONEY THICK LIQUIDS AND WILL START VITAL STEM WITH ST. SLEEPING MOST OF THE TIME. DR. FLANNERY AND DR. BERNSTEIN CAME TO SEE PT AND ADJUSTING MED. PT HAS SIGNIFICANT LEFT SIDED HEMIPARESIS, HAS UNSTEADY GAIT. ON SEIZURE PRECAUTION WITH PADDING ROUND BED. DYSARTHRIA, AND GENERALIZED NON-PITTING EDEMA. ACCU CHECKSS ACHS AND MANAGED WITH PO MEDICAITONS, DYER CATHETER IN PLACE AND SECURED TO LEG. DOUBLE LUMEN PICC TO RIGHT UPPER ARM, FLUSHES APPROPRIATELY, DRESSING C/D/I, W/O S/S. PATIENT CURSHING AND MADE MEAN COMMEND TO PHYSICAL THERAPIST. HOWEVER, PT AND OT ABLE TO GOT HER UP TO PHYSICAL GYM FOR AWHILE. PT HAS MODERATE LOOSE BM THIS AM. FALL PRECAUTION IN PLACE. CALL LIGHT WITHIN REACH. HAS A SITTER AT BEDSIDE FOR SAFETY.
[2019-02-20 15:18] VITALS: BP 89/43
[2019-02-20 15:27] VITALS: BP 125/59
[2019-02-20 19:00] VITALS: BP 110/48
--- NOTE | 2019-02-21 01:47 | NUR ---
ASSUMED CARE OF PT AT 1915. PT IS SLEEPING AND VITAL SIGNS ARE STABLE. PT IS AROUSABLE WITH VERBAL STIMULI AND IS ABLE TO RESPOND TO VERAL COMMANDS. PATIENT DENIES ANY PAIN AND WAS ABLE TO TAKE SCHEDULED MEDICATIONS WITH APPLESAUCE. PICC LINE IN DELFIN FLUSHES APPROPRIATELY, DRESSING C/D/I, AND W/O S/S OF COMPLICATIONS. SITTER AT BEDSIDE FOR SAFETY. SEIZURE PRECAUTIONS IN PLACE FOR HX OF SEIZURES. FALL PRECAUTIONS IN PLACE AND NURSING WILL CONTINUE TO MONITOR.
[2019-02-21 07:13] VITALS: BP 148/76
[2019-02-21 08:53] VITALS: BP 155/81
--- NOTE | 2019-02-21 14:36 | NUR ---
ASSUMED CARE OF PT AT 0715. REPORTS THAT PT SLEPT ALL NIGHT. D/C A SITTER THIS AM. PT ALERT THIS AM AND PARTICIAPTED WITH OT. OT GAVE PT SPONGE BATH AND UP TO DINNING ROOM FOR BREAKFAST. SAT 98% ON RA WHILE SHE WAS UP. PT WORKED WELL WITH THIS MOTOR GRADER OPERATOR AND SHE WAS IN GOOD SPIRIT AND TOOK ALL HER MORNING MEDS WITHOUT DIFFICULTY ABLE TO FEED HERSELF AT BREAKFAST . ST WORKED WITH PT AND AFTER SPEECH PT HAD 2X EPISODE OF EMESIS. NOTIFIED DR. WESTON ABOUT EMESIS RECEIVED ORDER FOR ZOFRAN 4MG ONE TIME NEED. PT IS A&OX1 AND VITAL SIGNS ARE STABLE. PT HAS SIGNIFICANT LEFT SIDED HEMIPARESIS, HAS UNSTEADY GAIT. ON SEIZURE PRECAUTION WITH PADDING ROUND BED. DYSARTHRIA, AND GENERALIZED NON-PITTING EDEMA. DYER CATHETER IN PLACE AND SECURED TO LEG. DOUBLE LUMEN PICC TO RIGHT UPPER ARM, FLUSHES APPROPRIATELY, DRESSING C/D/I, W/O S/S.IV TEAM CALLED AND SAID IF PT CAN HAVE ORDER TO D/C IV. NOTIFIED DR. WESTON AND HE WANTS TO KEEP PICC LINE. FALL PRECAUTION IN PLACE. CALL LIGHT WITHIN REACH. PT GETS EXHAUSTED AFTER THERAPY THIS AM. SKIP LUNCH, SAT 89% WHILE RESTING BECAUSE PT NOT TAKING DEEP BREATH. O2 AT 2L AT REST. WILL CONTINUE TO MONITOR.
[2019-02-21 19:55] VITALS: BP 108/63
--- NOTE | 2019-02-22 04:21 | NUR ---
SLEEPING WELL TONIGHT. O2 2L PNC, DYER TO DD. TAKING MEDS WHOLE WITH APPLESAUCE AND DRINKING HONEY THICKENED LIQUIDS WITH ENCOURAGEMENT. NO PRN MEDS GIVEN TONIGHT, SEIZURE PADS IN PLACE. FREQUENT OBSERVATION FACIILITATED BY PATIENT BEING IN ROOM 514 ACCROSS FROM NURSE STATION
[2019-02-22 07:32] VITALS: BP 139/67
--- NOTE | 2019-02-22 13:37 | NUR ---
ASSUMED CARE OF PT AT 0715. PT IS LETHARGIC BUT IS ORIENTED TO PERSON AND RESPONSIVE TO VERBAL COMMANDS. ACCU CHECKS BID AND MANAGED WITH PO MEDICAITONS. MEDICATIONS GIVEN WHOLE IN APPLESAUCE. PICC IN RUE DIFFICULT TO FLUSH AND DRESSING C/D/I. DYER IN PLACE, SECURED TO LEG, AND DRAINING APPROPRIATELY. PATIENT TAKING HONEY THICK LIQUIDS AND PUREE CONSISTANCIES. SEIZURE PRECAUTIONS FOR HX OF SEIZURES IN PLACE, FALL PRECAUTIONS IN PLACE AND NURSING WILL CONTINUE TO MONITOR.
[2019-02-22 19:59] VITALS: BP 101/46
--- NOTE | 2019-02-23 02:43 | NUR ---
assumed care at approx 1900 evening 02/22. pt lying in bed sleeping soundly at change of shift. 02 at 2l per n/c. [place] to dd with low output. ALMOND GRINDER paged and IVF ordered infusing at present. pt awoken for hs meds and she took with yogurt tolerating well. pt confused and mumbling in her sleep frequently tonight. seizure precautions in place. bed alarm on and call light in reach. will continue to monitor.
--- NOTE | 2019-02-23 04:43 | NUR ---
pt sleeping off and on tonight, not sleeping soundly majority of night. pt becoming more loud and vocal starting to yell out and refusing mouth care. pt pulling 02 and covers off. pt given tylenol and xyprexa as ordered as pt c/o back pain and becoming more agitated. bed alarm on and call light in reach. will continue to monitor.
[2019-02-23 07:07] VITALS: BP 153/64
[2019-02-23 09:40] LABS: HEMATOCRIT 32.7 % (37.0-47.0); HEMOGLOBIN 10.7 gm/dL (12.0-15.0); MCH 30.6 pg (26.0-34.0); MCHC 32.6 g/dL (28.0-37.0); MCV 93.8 fL (80.0-100.0); PLATELET COUNT 200 thou/uL (150-400); RBC 3.48 mil/uL (4.20-5.00); RDW 14.2 % (10.5-14.5); WBC 10.1 thou/uL (4.0-11.0)
[2019-02-23 09:46] LABS: CALCIUM 7.4 mg/dL (8.5-10.1); CREATININE 1.2 mg/dL (0.6-1.0); MAGNESIUM 1.3 mg/dL (1.8-2.4)
[2019-02-23 10:26] LABS: PLATELET ESTIMATE NORMAL
--- NOTE | 2019-02-23 12:20 | NUR ---
ASSUMED CARE OF PT AT 0700. PT IS ALERT AND ORIENTED TO PERSON, FREQUENTLY CONFUSED WITH PERIODS OF COMBATIVNESS AND AGITAITON, AND VITAL SIGNS ARE STABLE. PT DENIES PAIN AND PARTICIPATED IN ALL SCHEDULED THERAPIES. PT HAS PICC LINE TO RUE PATIENT, DRESSING C/D/I, W/O REDNESS, WARMTH, OR DRAINAGE, RUNNING NS @75ML/HR. TRANSFERS WITH 1-2 MAX ASSIST TO W/C WITH GAIT BELT, HELMET IN PLACE WHEN OUT OF BED. TOLERATES MEDICAITONS CRUSHED IN PUDDING WITH HONEY THICK LIQUIDS. EEG THIS MORNING, RESULTS PENDING, LABS DRAWN AND RESULTS REPORTED TO GEOSPATIAL EXTRACTOR ANALYSIS. SEIZURE PRECAUTIONS IN PLACE FOR HX OF SEIZURES. FALL PRECAUTIONS IN PLACE AND NURSING WILL CONTINUE TO MONITOR.
[2019-02-23 19:30] VITALS: BP 148/77
[2019-02-24 09:15] VITALS: BP 145/69
--- NOTE | 2019-02-24 10:48 | NUR ---
ASSUMED CARE AT 0700. PATIENT IS ALERT AND ORIENTED X2. PATIENT WAN'S. LUNGS ARE DEMINISHED SHEKHAR. PATIENT CONTINUES ON 02 AT 2L PER N/C. PATIENT HAS PICC LINE RIGHT UPPER ARM. IVF NA INFUSING AT 75CC/HR. PATIENT IS TO WEAR HELMET WHEN UP IN W/C. PATIENT HAS DYER TO DD, DRAINING ERIC COLORED URINE. UP IN W/C WITH ASSIST OF 2 STAFF TO DINING ROOM FOR MEALS. FALL AND SAFETY PROTOCOLS IN PLACE. DENIES ANY PAIN AT THIS TIME. PATIENT HAS LEFT SIDED WEAKNESS. CONTINUES TO PROGRESS SLOWLY TOWARDS D/C GOALS. WILL CONTINUE TO MONITER
--- NOTE | 2019-02-24 12:11 | NUR ---
team meeting, recommendation: dr villa consulted, pt cont to verbal say here dad is here when he not here visiting. pt needs to be offered honey thick liquids when up. pt is on iv fluids 75cc/hr. pt has helmet. pt working with pt, ot, st- vital stim therapy. Re-team , start looking into different plans for pd at home, and possible will need ltc. she is still working with therapy.
--- NOTE | 2019-02-24 16:36 | NUR ---
VASCULAR ACCESS NURSE ROUNDING. THIS PATIENT HAS AN ORDER FROM THE MD TO CONTINUE THE PICC LINE ACCESS.
[2019-02-24 19:10] VITALS: BP 146/70
--- NOTE | 2019-02-25 04:51 | NUR ---
BED ALARM AND WITHIN SIGHT OF DESK. TAKING MEDS WITH PUDDING, WASHED DOWN WITH GULPS OF HONEY THICK LIQUIDS. PICC LINE PATENT FOR BLOOD DRAW, RED PORT DRAWS MORE EASILY THAN THE PURPLE.
[2019-02-25 05:32] LABS: HEMATOCRIT 29.6 % (37.0-47.0); HEMOGLOBIN 10.1 gm/dL (12.0-15.0); MCH 31.3 pg (26.0-34.0); MCHC 34.2 g/dL (28.0-37.0); MCV 91.7 fL (80.0-100.0); PLATELET COUNT 179 thou/uL (150-400); RBC 3.23 mil/uL (4.20-5.00); RDW 13.6 % (10.5-14.5); WBC 7.4 thou/uL (4.0-11.0)
[2019-02-25 05:52] LABS: ALBUMIN 2.3 g/dL (3.4-5.0); CREATININE 0.7 mg/dL (0.6-1.0); MAGNESIUM 1.4 mg/dL (1.8-2.4); PHOSPHORUS 3.4 mg/dL (2.5-4.9); POTASSIUM 3.5 mmol/L (3.5-5.1)
[2019-02-25 06:30] LABS: ABSOLUTE NEUTROPHILS 5.3 thou/uL (1.4-8.2)
[2019-02-25 06:31] LABS: PLATELET ESTIMATE NORMAL
[2019-02-25 08:00] VITALS: BP 142/70
--- NOTE | 2019-02-25 15:30 | NUR ---
PT BROTHER [employer] AND DAD HERE FOR VISIT, TOOK SNF LIST AND WILL LET CM TEAM KNOW NEXT WEEK IF CHECKED SNF FACILITY IF NEEDED. CONT WITH RE TEAM NEXT WEEK. PT IS CONT TO WORK WITH THERAPY.
--- NOTE | 2019-02-25 19:10 | NUR ---
ASSUMED CARE OF PT AT 0715. PT WAS A&OX1-2 EARLY IN SHIFT BUT IMPROVED THROUGH SHIFT AND WAS A&OX4 AT DINNER, VITAL SIGNS ARE STABLE. PT TAKES MEDICAITONS WHOLE IN PUDDING WITH HONEY THICK LIQUIDS. TRANSFERS WITH 1 PERSON MOD ASSIST WITH GAIT BELT AND WALKER, HELMET ON WHEN OUT OF BED. PICC TO RUE WNL AND RUNNING MEDICAITONS AND FLUIDS. LAB RESULTS REPORTED TO PROVIDER AND ORDERS OBTAINED FOR MAGNESIUM AND DEXTROSE 5%, LABS TO BE REDRAWN ON SATURDAY. SEIZURE PRECUATIONS IN PLACE FOR HX OF SEIZURES. FALL PRECAUTIONS IN PLACE AND NURSING WILL CONTINUE TO MONITOR.
[2019-02-25 23:21] VITALS: BP 155/77
--- NOTE | 2019-02-26 04:18 | NUR ---
assumed care at approx 1900 evening 02/24. pt lying in bed with head of bed elevated at change of shift and pads in place for seizure precautions. daughter at bedside. pt on room air with 02 sat 93%. pt took hs meds with pudding tolerating well. pt restless and fussy when daughter here and continued to be therefore prn xyprexa given. pt appears to be sleeping soundly at present and will continue to monitor with hourly rounding. bed alarm on and call light in reach.
[2019-02-26 06:13] LABS: ALBUMIN 2.2 g/dL (3.4-5.0); CALCIUM 8.7 mg/dL (8.5-10.1); CREATININE 0.7 mg/dL (0.6-1.0); MAGNESIUM 1.4 mg/dL (1.8-2.4); PHOSPHORUS 3.1 mg/dL (2.5-4.9); POTASSIUM 3.5 mmol/L (3.5-5.1)
[2019-02-26 07:50] VITALS: BP 144/75
--- NOTE | 2019-02-26 15:52 | NUR ---
ASSUMED CARES AT 0700. PT ORIENTED TO SELF AND SITUATION, FORGETFUL AND CONFUSED. DENIES PAIN. VITALS REMAIN STABLE. LS CLEAR, SATS STABLE ON RA. REMAINS ON ASPIRATION PRECAUTIONS, SITTING UPRIGHT FOR ALL MEALS, MEDS WHOLE IN PUDDING AND TOLERATED WELL. SEIZURE PRECAUTIONS MAINTAINED, HELMET ON WHEN UP FROM BED AT ALL TIMES. PICC LINE ON RIGHT UPPER ARM REMAINS INTACT AND PATENT, IV MG SULFATE INFUSED AT 25ML/HR. UP WITH 1-2MIN ASSIST, AMBULATED SHORT DISTANCES. VERY SLEEPY AND LETHARGIC BETWEEN THERAPIES, STATED THAT SHE DOESN'T SLEEP WELL AT NIGHT WITHOUT HER CPAP, RT CONTACTED REGARDING SETTING UP CPAP FOR PT'S USE TONIGHT. FREQUENT VISUAL CHECKS. CALL LIGHT WITHIN REACH. FALL PRECAUTIONS IN PLACE
[2019-02-26 16:53] VITALS: BP 156/47
[2019-02-26 19:38] VITALS: BP 147/64
--- NOTE | 2019-02-27 03:59 | NUR ---
ASKED TO GET UP TO BSC, TRANSFERRED WITH ONE PERSON ASSIST AND HAD MODERATE BM. MOVING SELF A LITTLE IN BED, SEIZURE PADS IN PLACE, CPAP ON AT HS SHE REQUESTED. TAKING PILLS WITH PUDDING AND WASHING THEM DOWN WITH HONEY THICK TEA.
[2019-02-27 07:55] VITALS: BP 153/87
--- NOTE | 2019-02-27 13:04 | NUR ---
No wt past 10 days, please obtain and record current wt.
[2019-02-27 19:10] VITALS: BP 145/80
--- NOTE | 2019-02-27 19:32 | NUR ---
ASSUMED CARE OF PT AT 0715. PT IS A&OX1-4 THROUGHOUT SHIFT, CONFUSION AND INCREASED IMPULSIVIITY BEGINING AFTER DINNER. BLOOD PRESSURES MODERATELY ELEVATED THIS SHIFT, BUT MANAGED WITH PO MEDICAITONS, VITAL SIGNS OTHERWISE STABLE. REPORTS NO PAIN THIS SHIFT AND PARTICIPATED IN SCHEDULED THERAPIES. ACCU CHECKS BID AND BG MANAGED WITH PO MEDICATIONS. PT TOLERATES PO MEDICATIONS WHOLE WITH PUDDING AND HONEY THICK LIQUIDS. DOUBLE LUMEN PICC LINE TO RUE PATENT, DRESSING C/D/I AND W/O S/S OF INFECTION. HELMET IN PLACE WHEN OUT OF BED. TRANSFERS WITH 1 PERSON MOD ASSIST WITH GAIT BELT AND WALKER INTO W/C OR BEDSIDE COMMODE. FLUIDS AND NUTRITIONAL INTAKE ENCOURAGED. DYER CATHETER DRAINING APPROPRIATELY AND SECURED TO LEG. SEIZURE PRECUATIONS IN PLACE FOR HX OF SEIZURES. FALL PRECAUTIONS IN PLACE AND NURSING WILL CONTINUE TO MONITOR.
--- NOTE | 2019-02-28 05:05 | NUR ---
ASSUMED CARE AT 1900, ASSESSMENT COMPLETED. PT C/O HEADACHE 4 OF 10, GIVEN TYLENOL FOR RELIEF. DENIES SOB OR NAUSEA. PT DROWSY/LETHARGIC, REQUIRED MULTIPLE PROMPTS TO ANSWER QUESTIONS AND WHILE GIVING MEDICATIONS. ALL MEDS GIVEN ONE AT A TIME IN PUDDING, LARGER PILLS BROKEN IN HALF; PT TOLERATED SWALLOWING ALL PILLS, NO SIGN OF ASPIRATION. DYER DRAINING DARK YELLOW URINE WITH SOME SEDIMENT AND SMALL CLOTS NOTED. PT MOVING AROUND IN BE, CHANGING POSITIONS BY HERSELF. NO OTHER CONCERNS, WILL CONTINUE TO MONITOR.
[2019-02-28 07:24] VITALS: BP 141/68
--- NOTE | 2019-02-28 13:37 | NUR ---
TOWARDS POC PT A/O X4, VSS, AFEBRILE. DENIES PAIN. PT/OT WORK WITH PT. SEIZURE AND SAFETY PRECAUTION IN PLACE. NO CONCERNS VOICED. REMAINED IN 2L O2. WILL CONTINUE TO MONITOR
[2019-02-28 19:16] VITALS: BP 167/78
--- NOTE | 2019-03-01 03:01 | NUR ---
TOLERATING PILLS IN PUDDING AND TAKING SIPS OF HONEY THICK LIQUIDS. APPRECIATES PRN NASAL SPRAY AND SURPRISED WHEN I TELL SHE CAN HAVE IT AGAIN LATER IF SHE FEELS CLOGGED UP. SLEPING MOST OF THE TIME TONIGHT WITH OCCASSIONAL TALKS WITH HERSELF. DYER TO YESENIA PATENT CLEAR YELLOW. 2 LITERS PER NASAL CANNULA, PATIENT DOES NOT WANT TO TRY HER CPAP TONIGHT
[2019-03-01 08:04] VITALS: BP 184/61
--- NOTE | 2019-03-01 10:58 | NUR ---
ASSUMED CARE OF PT AT 0715. PT IS ALERT AND ORIENTED TO PERSON AND PLACE, BLOOD PRESSURE ELEVATED BUT MANAGED WITH PO MEDICAITONS PER ORDERS. PT TOLERATED MEDICATIONS WHOLE OR CUT IN HALF WITH PUDDING AND HONEY THICK LIQUIDS. TRANSFERS WITH 2-3 PERSON ASSIST WITH GAIT BELT AND WALKER TO W/C OR COMMODE. 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 DENIES PAIN AND PARTICIPATED IN SCHEDULED THERAPIES. SWALLOW PRECAUTIONS MAINTINED. PT ON SEIZURE PRECAUTIONS FOR HX OF SEIZURES. FALL PRECAUTIONS IN PLACE AND NURSING WILL CONTINUE TO MONITOR.
[2019-03-01 19:47] VITALS: BP 147/73
--- NOTE | 2019-03-02 04:44 | NUR ---
TAKING MEDS WITH PUDDING AT HS, A FEW SIPS OF HONEY THICKENED WATER SINCE THEN. HAS SLEPT MOST OF SHIFT, SEIZURE PADS IN PLACE, HAS TURNED SELF TO SIDE A FEW TIMES.
[2019-03-02 06:22] LABS: ABSOLUTE NEUTROPHILS 3.4 thou/uL (1.4-8.2); BASOPHILS 0.5 % (0.0-2.0); EOSINOPHILS 0.1 % (0.0-3.0); HEMOGLOBIN 10.3 gm/dL (12.0-15.0); LYMPHOCYTES 35.9 % (24.0-44.0); MCH 30.5 pg (26.0-34.0); MCHC 33.2 g/dL (28.0-37.0); MCV 92.1 fL (80.0-100.0); MONOCYTES 5.8 % (1.0-8.0); PLATELET COUNT 190 thou/uL (150-400); POLYS 57.7 % (36.0-66.0); RBC 3.36 mil/uL (4.20-5.00); RDW 14.3 % (10.5-14.5)
[2019-03-02 06:39] LABS: CALCIUM 9.5 mg/dL (8.5-10.1); CREATININE 0.9 mg/dL (0.6-1.0); MAGNESIUM 1.1 mg/dL (1.8-2.4); POTASSIUM 4.2 mmol/L (3.5-5.1)
--- NOTE | 2019-03-02 16:30 | NUR ---
ASSUMED CARE OF PT AT 0730. PT IS A&OX1-2 WITH PERIODS OF AGITATION, VITAL SIGNS ARE STABLE. PROVIDER NOTIFIED ABOUT AM LABS AND ORDERS RECEIVED FOR MAGNESIUM REPLACEMENT. DOUBLE LUMEN PICC LINE TO URE FLUSHES AND DRAWS APPROPRIATELY, DRESSING CHANGED THIS SHIFT BY IV NURSE IS C/D/I, AND SITE IS WITHOUT REDNESS, DRAINAGE OR EDEMA. DYER CATHETER IN PLACE AND DRAINING APPROPRIATELY, SECURED TO RLE. PT TOLERATED PO MEDICAITONS WHOLE IN PUDDING AND PIVOT TRANSFERS WITH 2 PERSON MAX ASSIST WITH GAIT BELT. PT DENIES PAIN THIS SHIFT AND WAS ABLE TO PARTICIPATE WITH SCHEDULED THERAPIES. SEIZURE PRECUATIONS IN PLACE FOR HX OF SEIZURE. FALL PRECAUTIONS IN PLACE AND NURSING WILL CONTINUE TO MONITOR.
[2019-03-02 19:30] VITALS: BP 138/62
--- NOTE | 2019-03-03 00:30 | NUR ---
PT TRANSFERRING TO BEDSIDE COMMODE WITH STEPHANI AND ASSIST X2 AND IS TOLERATING FAIR. DENIES PAIN. RESTING COMFORTABLY. NO NEEDS VOICED. CALL LIGHT WITHIN REACH. WILL CONTINUE TO PROVIDE FREQUENT OBSERVATION.
--- NOTE | 2019-03-03 05:40 | NUR ---
TOLERATED CPAP FOR APPROX 2 HOURS TOTAL. UP TO BSC TWICE FOR BM. MEDS WITH PUDDING, SIPS OF HONEY THICKENED LIQUIDS. TURNING SELF IN BED, SEIZURE PADS IN PLACE
[2019-03-03 08:00] VITALS: BP 133/82
--- NOTE | 2019-03-03 14:07 | NUR ---
team meeting, recommendation: low endurance, family to look at option for ltc early next week.
--- NOTE | 2019-03-03 18:20 | NUR ---
ASSUMED CARE AT APPROX 0715. PATIENT A/O X2-3, FORGETFUL. NO HALLUCINATIONS NOTED THIS SHIFT. PATIENT REPORTS HALLUCINATIONS LAST EVENING. FAMILY CONFIRMED THIS, STATED PATIENT HAS BEEN VERY AGITATED AT HS WITH HALLUCINATIONS. PATIENT ALSO REPORTED FEELING SHE DID NOT THINK LIFE WAS WORTH LIVING, PER SPEECH THERAPIST REPORT. PHYSCIATRIST NOTIFIED. PATIENT PARTICIPATED IN SOME THERAPY THIS DATE. NECTAR THICKENED LIQUIDS ENCOURAGED THIS SHIFT, SWALLOW PRECAUTIONS IN PLACE. HELMET IN PLACE WHEN UP IN WC. PATIENT HAD LOOSE BM X1 THIS DATE,, HOSPITALIST NOTIFIED. MEDS ADJUSTED. DYER TO DD. FLOMAX WILL BEGIN THIS EVENING, PLAN IS TO D/C DYER BY THIS SATURDAY. FALL PRECAUTIONS IN PLACE. PATIENT'S FAMILY NOTIFIED OF PLAN OF CARE/PLAN FOR DC. QUESTIONS ANSWERED. PATIENT IN WC IN DINING ROOM FINISHING DINNER. WILL CONTINUE TO MONITOR.
[2019-03-03 19:25] VITALS: BP 157/97
--- NOTE | 2019-03-04 04:34 | NUR ---
FLOMAX INITIATED, DYER TO DD, FLUIDS ENCOURAGED BUT TAKING VERY LITTLE. TAKING MEDS WHOLE WITH PUDDING. TALKING AT LENGTH ABOUT CONSERVING WELL WATER WHILE SHE WAS GROWING UP AND ABOUT HER FATHER AND HER FATHER'S DESIRE TO AVOID MOVING TO A HALF-WAY.
[2019-03-04 08:30] VITALS: BP 115/67
--- NOTE | 2019-03-04 13:12 | NUR ---
Nutrition: pt admitted with AMS, encephalopathy. Requires pureed, honey thick liquids. Intake remains good, 75-100% of meals and 75% of ensure pudding supplements due to poor prior intake. Discussed D/C of supplements as no longer needed-pt agrees. No weight since 02/17-request wt. Low risk.
--- NOTE | 2019-03-04 14:07 | NUR ---
Celery Stripper faxed Referral for Group Home care to [facility] and to [facility] [place], dc anticipated early next week. Case Managagment to follow.
--- NOTE | 2019-03-04 15:05 | NUR ---
nitza received phone call from [facility] and the are unable to accept rt no female ltc "have 2 year waiting list"/john. nitza notified son yolanda and catrachito. "ok to send to [facility]"/yolanda.
--- NOTE | 2019-03-04 16:15 | NUR ---
ASSUMED CARE AT APPROX 0715. PATIENT A/O X2-3. FORGETFUL. NEEDING MAX CUES FOR SAFETY. PATIENT STATES "THERE IS NOTHING WRONG WITH MY THINKING." PATIENT UNAWARE OF COGNITIVE DEFICITS. DYER IN PLACE, PATENT, TO DD. PICC LINE DRESSING C/D/I - IV TEAM ROUNDED ON PATIENT. PATIENT ON LOW-ENDURANCE PROGRAM THIS DATE. RELUCTANT TO WORK WITH THERAPY, PATIENT'S FAMILY AWARE. PATIENT'S DAUGHTER IN LAW SPOKE WITH DR. TORRES ON UNIT THIS DATE TO DISCUSS PROGNOSIS. FALL PRECAUTIONS IN PLACE. HELMET ON WHEN OUT OF BED. OUT TO TABLES FOR MEALS. HONEY THICKENED LIQUIDS ENCOURAGED. RESTING IN BED. WILL CONTINUE TO MONITOR.
[2019-03-04 19:35] VITALS: BP 142/90
--- NOTE | 2019-03-05 03:24 | NUR ---
assumed care at approx 1900 evening 03/04. pt sitting up in w/c at change o shift with helmet on visiting with family at bedside. pt assisted into bed approx 2100. helmet removed at that time. pt took hs meds with pudding tolerating well. pt appears to be sleeping soundly. seizure pads in place. [place] to dd with yellow urine to bag. bed alarm on and call light in reach. will continue to monitor.
--- NOTE | 2019-03-05 04:16 | NUR ---
unable to flush picc line earlier as ordered per emar. cathflo activase added per protocol. after more than hour able to flush and withdraw blood per protocol for lab draw. pt tolerated well.
[2019-03-05 05:58] LABS: CALCIUM 9.2 mg/dL (8.5-10.1); MAGNESIUM 1.3 mg/dL (1.8-2.4); POTASSIUM 4.2 mmol/L (3.5-5.1)
[2019-03-05 07:26] VITALS: BP 127/58
[2019-03-05 19:53] VITALS: BP 144/71
--- NOTE | 2019-03-05 20:53 | NUR ---
ASSUMED CARE OF PT AT 0715. PT IS A&OX4 AND VITAL SIGNS ARE STABLE. PT DENIES PAIN AND PARTICIPATED IN SCHEDULED THERAPIES. TOLERATED PO MEDICATIONS WHOLE IN PUDDING WITH HONEY THICK LIQUIDS. ACCU CHECKS ACHS AND BG MANAGED WITH PO MEDICAITONS. PT TRANSFERS WITH 1 PERSON MOD-MAX ASSIST WITH GAIT BELT AND WALKER. DYER CATHETER DRAINING APPROPRIATELY AND SECURED TO LEG. DOUBLE LUMEN PICC TO RUE FLUSHES APPROPRIATELY, DRESSING C/D/I, SITE W/O REDNESS, DRAINAGE, OR EDEMA. SEIZURE PRECAUTIONS FOR HX OF SEIZURES. FALL PRECUATIONS IN PLACE AND NURSING WILL CONTINUE TO MONITOR.
--- NOTE | 2019-03-06 04:03 | NUR ---
TURNING SELF IN BED WITH OCCASSIONAL HELP AND ASSIST BEING PULLED UP IN BED. TOLERATED CPAP FOR 5 HOURS, WANTS IT OFF NOW, WILL KEEP CONTINUOUS SAT MONITOR ON FOR A WHILE TO SEE HOW HER SAT IS ASLEEP ON ROOM AIR. BLOOD DRAWS EASILY THOUGH DELFIN PICC LINE IF ELBOW IS ON PILLOW. PATIENT AGREES WITH PLAN TO REMOVE DYER THIS MORNING
--- NOTE | 2019-03-06 06:00 | NUR ---
DYER CATHETER REMOVEDD WITHOUT INCIDENT (6CC FROM [place])
[2019-03-06 08:00] VITALS: BP 155/88
--- NOTE | 2019-03-06 14:35 | H ---
[facility] [place] [address] HISTORY AND PHYSICAL Name: WILLKALA Tiffany Room #: 514-P ADM IN M.R.#: [id number] Admission: 02/17/19 ������������������ Attend Phys: Alfonso Varner MD Discharge: ������������������ Date of : 52 Report #: [id number] THIS REPORT FOR: //name// CC: Alfredo Varner DATE OF SERVICE: 02/18/2019 HISTORY OF PRESENT ILLNESS: The patient is a 68-year-old white female with a prior history of an acute traumatic brain injury, underwent right temporal craniectomy. Apparently had fallen down from a ladder and a staircase. She was treated at [facility]. This was noted to be earlier in 2019. She had a skull flap. It has been placed in her right lower abdomen. She has residual left-sided weakness, left facial droop, dysphagia, blurred vision, and dysarthria. She apparently went back to see the neurosurgeon (Dr. Genao, I believe), but did not have the skull flap replaced secondary to "behavioral disturbances." The patient prior to her recent hospital readmission was having more problems at home, acting progressively more "crazy" per family kicking people out of the house. She was apparently not wearing her CPAP because the straps did not fit well with her prior craniectomy. She has a history of seizures and there was concern regarding her seizure medication and question if the medication could be contributing to her symptomatology. While hospitalized, she had a seizure and developed respiratory failure and was down in the intensive care unit. She was mechanically ventilated, started on methylprednisolone, given steroids for laryngeal edema. She gradually stabilized. Neurology has been involved. Psychiatry is seeing her regarding behavioral issues. She has gradually improved since her extubation was moved out of the ICU, seen by speech therapy and allowed a pureed honey thickened liquid diet. She has been following basic commands and felt to be more cooperative and ready for acute in-hospital inpatient rehabilitation. PAST MEDICAL HISTORY: Includes the above, severe traumatic brain injury earlier in 2019. She has a history of diabetes mellitus, pancreatitis, gout, dyslipidemia, fibromyalgia, asthma, chronic sinusitis, hypertension, hyperthyroidism, and chronic back pain. MEDICATIONS: Please see the full medication listing. ALLERGIES: No known drug allergies. SOCIAL HISTORY: Lives in a double wide trailer with her father who is 95 years old. She had indicated that she was independent with basic ADLs utilizing a walker. She does have an involved daughter. HABITS: No history of tobacco or alcohol abuse. [address] [address] HISTORY AND PHYSICAL Name: KALA SOLIS Room #: 514-P [facility] IN [facility]#: [id number] Admission: 02/17/19 ������������������ Attend Phys: Alfonso Varner MD Discharge: ������������������ Date of : 52 Report #: [id number] REVIEW OF SYSTEMS: No current complaints of chest pain, shortness of breath or abdominal discomfort. PHYSICAL EXAMINATION: Obese 68-year-old white female in obvious distress. VITAL SIGNS: Last recorded temperature 98.9, pulse 82, respirations 20, blood pressure 151/69. NEUROLOGIC: The patient has a right craniectomy with a depression in her skull. No evidence of erythema of the incision. No tenderness. She has a nasal prong O2 in place. She does have a left facial droop. HEENT: Appeared to be controlling her oral secretions this morning. CHEST: Sounded reasonably clear to auscultation. CARDIOVASCULAR: Regular rate and rhythm. ABDOMEN: Obese, bowel sounds positive, nontender. GENITOURINARY AND RECTAL: Deferred. EXTREMITIES: She does have dense left homonymous hemianopsia. She has functional range of motion and strength of the right upper and right lower extremity. Left upper extremity has significant weakness, a grade 3-3+/5. Left lower extremity is more of a 3+ to 4-/5. Tone maybe slightly increased. Functionally, she has been mod assist for basic transfers. ASSESSMENT: A 68-year-old white female with the following problem list: 1. Multifactorial encephalopathy. 2. Seizure disorder. 3. Prior traumatic brain injury with craniectomy. The patient does have her skull bone placed in her abdomen. 4. Dysphagia. 5. Obstructive sleep apnea. 6. Seizure disorder. 7. Obesity. 8. Behavioral issues. Psychiatry has been assisting. Zyprexa has been utilized. PLAN: The patient has been admitted for acute in-hospital inpatient rehabilitation. From a postadmission physician evaluation perspective, there are no relevant changes since the preadmission screening. Please see the above review of prior and current medical and functional conditions and comorbidities. Please see the patient's previous and current functional status. As far as risk of complications, the patient has multiple medical comorbidities as noted above. Initial plan of care involves the interdisciplinary acute inpatient rehabilitation program with goal of maximizing her functional independence, so she can hopefully return back to her prior living situation. Prognosis is reasonably good with estimated length of stay probably at least 2-3 weeks and potentially longer if warranted. The patient meets diagnostic criteria for an acute in-hospital inpatient rehabilitation stay. She meets the medical necessity criteria. She has the [address] [address] HISTORY AND PHYSICAL Name: KALA SOLIS Room #: 514-P ADM IN M.R.#: [id number] Admission: 02/17/19 ������������������ Attend Phys: Alfonso Varner MD Discharge: ������������������ Date of : 52 Report #: [id number] tolerance for therapies and has appropriate discharge goals back to the home setting. We will be having the multiple bi consultant physicians follow while she is on the acute rehab cherry. ��������������������������������������������� <ELECTRONICALLY SIGNED> ���������������������������������������� By: Alfonso Varner MD ��������������������������������������������� 03/06/19 1435 [id number] Alfonso Varner MD /nt
--- NOTE | 2019-03-06 14:40 | PLAN ---
[facility] [place] [address] REHAB UNIT PLAN OF CARE Name: KALA SOILS Room #: 514-P [facility] IN M.R.#: [id number] Admission: 02/17/19 ������������������ Attend Phys: Alfonso Varner MD Discharge: ������������������ Date of : 52 Report #: [id number] THIS REPORT FOR: //name// CC: Alfredo Varner DATE OF SERVICE: 02/20/2019 SUBJECTIVE: The patient is seen back today in followup. She is rather sleepy this morning. She has had problems with restlessness, agitation, continually trying to get out of bed and has had a sitter in place last night and including this morning. Psychiatry is involved with management as noted. Last recorded temperature 36.7, pulse 65, respirations 20, blood pressure 155/82. She has been working in therapies with transfers, min assist. Gait was 35 feet front-wheeled walker. In occupational therapy, she has needed encouragement as far as participation. Bed mobility has been mod assist. Speech therapy, she has severe verbal expression with moderate to severe dysarthria. She also has severe cognition and severe memory. As far as swallow evaluation, she did get a video swallow study and her recommendations are for pureed honey thick liquids. She is on seizure precautions. She is right across from the nurse's station. ASSESSMENT: 1. Multifactorial encephalopathy. 2. Seizure disorder. 3. Prior traumatic brain injury with craniectomy. A protective helmet has been ordered. 4. Dysphagia, on special diet as noted above. 5. Obstructive sleep apnea. 6. Seizure disorder. 7. Obesity. 8. Behavioral issues with psychiatrist assisting and current sitter in room. PLAN: The overall plan of care is based on the preadmission screen, post-admission physician evaluation and information garnered from therapy assessments. 1. Estimated length of stay is probably at least 2 weeks and potentially longer. She has a number of significant issues and has severe deficits as noted above. 2. Medical prognosis is fair to good. 3. Anticipated interventions includes the interdisciplinary acute inpatient rehabilitation program. 4. Anticipated functional outcomes would be for the patient to become modified independent with transfers, mobility and ADL issues as well as swallowing and cognition and communication. 5. Discharge destination would be back home with family. She is going to need a lot more assistance. She does have an involved daughter and also has her father [place] [address] REHAB UNIT PLAN OF CARE Name: KALA SOLIS Tiffany Room #: 514-P [facility] [place] IN ..#: [id number] Admission: 02/17/19 ������������������ Attend Phys: Alfonso Varner MD Discharge: ������������������ Date of : 52 Report #: [id number] 6. Expected therapy by discipline includes PT, OT and speech 1 hour per day each five days a week throughout the duration of the acute inpatient rehabilitation stay. ADDENDUM: Apparently, she missed some occupational therapy yesterday due to agitation. ADDENDUM The patient did miss some physical therapy and occupational therapy on 02/17/2019 secondary to fatigue and also missed some therapy on 02/18/2019 due to some dizziness. She does have a lot of medical and psychiatric issues with psychiatry involved. ��������������������������������������������� <ELECTRONICALLY SIGNED> ���������������������������������������� By: Alfonso Varner MD ��������������������������������������������� 03/06/19 1440 [id number] Alfonso Varner MD /nt
--- NOTE | 2019-03-06 16:28 | NUR ---
PT STATED THAT AFTER LUNCH, "I WAS TRYING FOND MY ROOM, AND I SAW MY FATHER IN THE CORNER OF THE ROOM, SITTING IN A CHAIR." "I KNEW IT COULDN'T BE HIM, BECAUSE THERE WAS NO ONE ELSE HERE WITH HIM, AND HE DOESN'T DRIVE." I TURNED AWAY AND LOOKED BACK AND HIS IMAGE WAS GONE. PT NOTED THAT THE HALLUCINATION WAS BRIEF. PT'S FAMILY NOTED THAT THE HALLUNICNATIONS SEEM TO BE GETTING BETTER, LESS FREQUENT.
--- NOTE | 2019-03-06 18:26 | NUR ---
PER DISCUSSION WITH PT'S SON, NATO, HER HEALTHCARE POWER OF RHINESTONE SETTER, PT HAS STATED TO HIM THAT SHE WANTED TO BE A DNR. ADVISED NATO THAT CURRENTLY PT IS A FULL CODE, AND THAT THE PHYSICIAN WOULD NEED TO DISCUSS THIS WITH THE PATIENT AND WITH NATO. PT WAS TEARFUL THIS EVENING, STATING THAT SHE DID NOT WANT TO EAT THE ALTERED DIET AND THICKENED LIQUIDS ANYMORE, AND STATED, "YOU'RE GOING TO FROM SOMETHING, MAY WELL BE THIS..." ENCOURAGED PT TO CONTINUE WITH THICKENED LIQUIDS AND CURRENT DIET AND VITAL STIM THERAPIES WITH BOOKKEEPING CLERKS SUPERVISOR, AND OFFERED THICKENED SPRITE, WHICH SHE STATED "WASN'T BAD." PT AGREED TO CONTINUE TO WORK ON SWALLOW WITH BOOKKEEPING CLERKS SUPERVISOR, AND VERBALIZED UNDERSTANDING OF THE RISK OF ASPIRATION PNEUMONIA AND RESPIRSTORY PROBLEMS IF SHE DID NOT COMPLY. PT ALSO ASKED QUESTIONS REGARDING DC PLAN AND HER PROGRESS AND NURSE CELLOPHANE WORKER ANSWERED HER WITH MOST RECENT REPORTS AND TEAM CONFERENCE NOTES. ENCOURAGING PO FLUID INTAKE AND PT UP IN DINING ROOM. MESSAGE SENT TO RN AND MD REGARDING QUESTIONS ABOUT HER CODE STATUS.
--- NOTE | 2019-03-06 19:50 | NUR ---
ASSUMED CARE AT APPROX 0715. PATIENT A/O X2-3. FORGETFUL, IMPULSIVE. VSS. C/O SHOULDER PAIN- MASSSAGE PER OT AND TYLENOL GIVEN. PATIENT PARTICIPATED IN THERAPY THIS DATE. AMBULATING X1 ASSIST GB AND MIN ASSIST. HELMET ON WHEN OUT OF BED. SEIZURE PRECAUTIONS IN PLACE. SWALLOW PRECAUTIONS MAINTAINED. HONEY THICKENED LIQUIDS ENCOURAGED. FALL PRECAUTIONS MAINTAINED. PATIENT'S FAMILY SPOKE WITH NURSE PUBLIC ADDRESS SERVICER REGARDING CODE STATUS- CONSULTANT EDUCATION CONTACTED PHYSICIAN. NO CALL BACK RECIEVED BY END OF SHIFT, NIGHT RN NOTIFIED. PATIENT HAD SEVERAL LOOSE STOOLS THIS SHIFT- PROVIDER NOTIFIED, IMMODIUM ORDERED PRN. SMALL AREA OF ERYTHEMA NOTED ON PATIENT'S LEFT BREAST- ANTIBIOTIC OINTMENT AND HYDROCORTISONE CREAM ORDERED. PATIENT RESTING IN BED AT CHANGE OF SHIFT.
[2019-03-06 19:54] VITALS: BP 151/74
--- NOTE | 2019-03-07 01:21 | NUR ---
UP TO BATHROOM WITH GAIT BELT WITH CONTACT GUARD ASSIST ON HER LEFT SIDE BECAUSE SHE LEANS TO THE LEFT. SMALL BOWEL MOVEMENT AND 250 CC YELLOW URINE. PATIENT'S HEADACHE RESPONDED WELL TO TYLENOL AT HS. CONTINENT, PLEASANT
[2019-03-07 07:25] VITALS: BP 139/69
--- NOTE | 2019-03-07 14:36 | EEG ---
[facility] [place] [address] ELECTROENCEPHALOGRAM Name: KALA SOLIS Tiffany Room #: 514-P ADM IN M.R.#: [id number] ������������������ Admission: 02/17/19 ������������������ Attend Phys: Alfonso Varner MD Discharge: ������������������ Date of : 52 Report #: [id number] ����������������������������������������������������������������� [id number] THIS REPORT FOR: //name// CC: Alfredo Varner DATE OF SERVICE: 02/23/2019 This patient is being evaluated for seizure disorder. The patient's EEG was done by placing the electrodes by standard 10-20 system of electrode placement. Both referential and sequential montages were used for recording. Background activity in this patient's EEG on the left side is about 9 Hz and 30 microvolt. On the right side, it is somewhat poorly formed, but the patient had a craniotomy there. Photic stimulation is unremarkable. Epileptiform activity, which was present during the last EEG arising from the right cerebral hemisphere is mostly resolved. IMPRESSION: This patient's EEG demonstrates that the epileptiform activity arising from the right cerebral hemisphere is mostly resolved. EEG is still abnormal on the right side, but that may be because of the patient's prior craniotomy. Clinical correlation is recommended. ���������������������������������������� <ELECTRONICALLY SIGNED> ���������������������������������������� By: Minesh Hernandes MD ��������������������������������������������� 03/07/19 1436 [id number] Minehs Hernandes MD /nt
[2019-03-07 15:51] VITALS: BP 126/97
[2019-03-07 16:00] VITALS: BP 126/97
[2019-03-07 16:19] VITALS: BP 120/86
--- NOTE | 2019-03-07 16:32 | NUR ---
PT A&OX4 HAD INCIDENT IN BATHROOM THAT WAS WITNESSED BY SHOE SHANKER, PT HAD NO INJURY, PHYSICIAN AND FAMILY NOTIFIED.
[2019-03-07 19:30] VITALS: BP 138/77
--- NOTE | 2019-03-07 20:34 | NUR ---
ASSUMED CARE OF PT AT 0715. PT WAS A&OX4 AT START OF SHIFT AND BEGAN TO HAVE MORE CONFUSION THE SHIFT PROGRESSED, VITAL SIGNS ARE STABLE. PT TRANSFERS WITH 1 PERSON MOD-MAX ASSIST WITH GAIT BELT AND WALKER, AND AT TIMES REQUIRES THE USE OF W/C. TOLERATED PO MEDICAITONS WHOLE WITH PUDDING AND HONEY THICK LIQUIDS. RED AREA TO THE LEFT LATERAL BREAST MONITORED AND TREATED PER ORDERS WITH TOPICAL MEDICAITONS. CATHETER WAS REMOVED ON 03/06, PT VOIDING WITHOUT DIFFICULTY, BLADDER NOT PALPABLE, PT DENIES DISCOMFORT, AND BLADDER SCAN SHOWS NO RESIDUAL. FAMILY AT BEDSIDE DURING LATE AFTERNOON. SEIZURE PRECUTIONS IN PLACE FOR HX OF SEIZURES. DOUBLE LUMEN PICC LINE PATENT, DRESSING C/D/I, AND SITE W/O REDNESS, DRAINAGE, OR EDEMA. FALL PRECAUTIONS IN PLACE AND NURSING WILL CONTINUE TO MONITOR.
--- NOTE | 2019-03-08 00:15 | NUR ---
ASSUMED CARE OF PT AT 1915. PT IS A&OX4. IS ON ROOM AIR. IS STABLE. DENIES PAIN. IS UP WITH 1 ASSIST, GB, WALKER TO BEDSIDE COMMODE. FALL PRECAUTIONS & HOURLY ROUNDING MAINTAINED. SEIZURE PRECAUTIONS IN PLACE. HELMET PLACED WHEN UP OUT OF BED. LABS & VITALS REVIEWED. CALL LIGHT WITHIN REACH. PT IS ACROSS FROM NURSE STATION. WILL CONTINUE TO MONITOR.
[2019-03-08 08:40] VITALS: BP 127/54
--- NOTE | 2019-03-08 11:18 | HC ---
[facility] [place] [address] CONSULTATION Name: KALA SOLIS Tiffany Room #: 514-P [facility] IN .R.#: [id number] Admission: 02/17/19 ������������������ Attend Phys: Alfonso Varner MD Discharge: ������������������ Date of : 52 Report #: [id number] THIS REPORT FOR: //name// CC: Alfredo Varner DATE OF SERVICE: 03/01/2019 ATTENDING PHYSICIAN: Alfonso Varner MD. MATERIAL LISTER: Rudi Verduzco, PhD CLINICAL PRESENTATION: The patient is a 68-year-old white female admitted to the rehabilitation unit for comprehensive inpatient rehabilitation program. 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 She required a right temporal craniectomy with the skull placed in her lower abdomen. The skull was not replaced due to behavioral issues. Additionally, she has a history of seizure disorder as a result of her fall. While hospitalized during her acute stay, she required mechanical ventilation and use of steroids that may have further complicated her recovery. Behavioral issues have been treated by Psychiatry. Her diagnostic assessment on the rehab unit is multifactorial encephalopathy, seizure disorder, prior traumatic brain injury with craniectomy, with skull bone remaining in the abdomen, dysphagia, obstructive sleep apnea, obesity, and behavioral issues. Prior to this deterioration in her medical condition and fall, she was living independently in her own home with her father. The patient has three children. Two children live within the [place] area. She does not report a prior history of treatment for mental disorder. 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 TECHNIQUES UTILIZED: Clinical interview, review of medical records, staff consultation and behavioral observation, mini mental status exam 2 standard version, verbal fluency assessment and brief category fluency assessment and digits forward, digits backward. EXAMINATION FINDINGS: The patient was alert and cooperative with the assessment. She is tangential with rambling speech. Confabulation was noted throughout the interview. She describes her symptoms to include word finding deficits, depression, anxiety, decreased appetite, and sleep disturbance. She does not report difficulty with her memory. The patient indicates having had intermittent hallucinations that are primarily arguments with her son. [facility] [address] [place] [address] CONSULTATION Name: KALA SOLIS Tiffany Room #: 514-P [facility] IN M.R.#: [id number] Admission: 02/17/19 ������������������ Attend Phys: Alfonso Varner MD Discharge: ������������������ Date of : 51 Report #: [id number] Her performance on the MMSE 2 standard version was extremely low. Her scores on the initial brief version were 11 of 16, which is a T score of 19 and extremely low. She is hard of hearing and also appears to show reduced auditory comprehension. She was 4/5 for orientation to time and 5/[address] Immediate recall was 1/3. Performance on the MMSE 2 standard version was extremely low with a raw score of 19 of 13, T score of 18. She was 0/5 for serial 7's, 2/2 for naming, 1/1 for repetition, 3/3 for auditory comprehension. She could read and follow single command. Her visual spatial construction is impaired. She was able to dictate a sentence. Category fluency as assessed through animal naming was extremely low with a raw score of 6. She reports having balance issues along with dizziness. Initial focused attention was at the tenth percentile in the low average range. Sustained concentration is assessed by digits backward was a T score of 39 with fourteenth percentile, which is low average. The patient appears to show adequate initial attention and is is well oriented. Deficits are primarily in immediate memory, sustained concentration and visual spatial construction and executive functioning. Decreased insight into her deficits are noted. Sustained concentration is variable and hile distractable she is easily redirected. DIAGNOSTIC IMPRESSION: Major neurocognitive disorder (dementia), likely due to traumatic brain injury, with intermittent irritability and agitation -- extent to be determined, likely in the moderate range. Unspecified anxiety disorder with depression. RECOMMENDATIONS: The patient will require 24-hour assistance in the management of medication, nutrition, and finances. Decreased insight places her at increased safety risks. She does not recognize the extent of her deficits. Her skill should be replaced as lack of protection within the right temporal areas places her at a great safety risk for contusions and subsequent brain trauma. A followup neuropsych assessment may be of benefit to clarify her cognitive functioning status following improved medical stability. At this time she requires assistance in medical decision making, financial and nutritional management. [address] [address] CONSULTATION Name: WILLKALA Room #: 514-P [facility] IN ..#: [id number] Admission: 02/17/19 ������������������ Attend Phys: Alfonso Varner MD Discharge: ������������������ Date of : 51 Report #: [id number] Thank you very much for allowing me to provide the consultation on this patient. ��������������������������������������������� <ELECTRONICALLY SIGNED> ���������������������������������������� By: Rudi Verduzco, PhD ��������������������������������������������� 03/08/19 1118 [id number] Rudi Verduzco, PhD /nt
[2019-03-08 22:45] LABS: URINE BILIRUBIN NEGATIVE (Negative); URINE BLOOD 1+ (Negative); URINE CLARITY CLOUDY; URINE COLOR YELLOW; URINE GLUCOSE-RANDOM* NEGATIVE (Negative); URINE KETONES NEGATIVE (Negative); URINE PROTEIN (DIPSTICK) 2+ (Negative); URINE UROBILINOGEN 0.2 E.U./dl (0.2-1.0)
[2019-03-08 22:47] LABS: URINE LEUKOCYTES-REFLEX 3+ (Negative); URINE NITRITE-REFLEX POSITIVE (Negative)
[2019-03-08 22:54] LABS: BACTERIA-REFLEX >30 Many /HPF (None Seen); CASTS None Seen /LPF (None Seen); CRYSTALS None Seen /LPF (None Seen); MUCUS None Seen strn/LPF (None Seen); SQUAMOUS 0-3 Few /LPF (0-3); TRANSITIONAL EPITHEL CELL 0-3 Few /LPF (None Seen); URINE RBC 3-10 Few /HPF (0-2); URINE WBC-REFLEX >25 Many /HPF (0-5)
--- NOTE | 2019-03-09 03:21 | NUR ---
TOLERATING MEDS WITH PUDDING. UP TO TOILET WITH MOD CONTACT GUARD ASSIST USING GAIT BELT AND CUEING. PATIENT CONTINENT OF URINE AND SMALL AMOUNT BOWEL. FELL ASLEEP APPROX 2200.
[2019-03-09 06:06] LABS: ALBUMIN 2.6 g/dL (3.4-5.0); ANION GAP 8 mmol/L (7-16); BUN 23 mg/dL (7-18); CALCIUM 9.7 mg/dL (8.5-10.1); CHLORIDE 104 mmol/L (98-107); CO2 30 mmol/L (21-32); CREATININE 1.1 mg/dL (0.6-1.0); GLUCOSE 119 mg/dL (74-106); POTASSIUM 4.2 mmol/L (3.5-5.1); SGOT 13 U/L (15-37); SGPT 22 U/L (30-65); SODIUM 142 mmol/L (136-145); TOTAL BILIRUBIN < 0.1 mg/dL (<0.1-1.0); TOTAL PROTEIN 6.1 g/dL (6.4-8.2)
[2019-03-09 08:00] VITALS: BP 138/82
--- NOTE | 2019-03-09 10:36 | NUR ---
Discharge Planning: updates faxed to [facility], anticipating dc tomorrow or Wednedsday. DP let Susi/[facility] know of incoming updates.
--- NOTE | 2019-03-09 13:36 | NUR ---
cm spoke with krystal at [facility] they have female ltc bed and will reach out to family. cm called son catrachito how stated " oh no, i will have to tour [facility]"/catrachito. cm education that if family is thinking of changing here minds on location for ltc that other referrals need to be sent out. " send to [facility], [facility], [facility] in [facility], then send to [facility], [facility], [facility] and [facility], still going to tour [facility] "/son catrachito. cm team to send referral for ltc.
--- NOTE | 2019-03-09 13:58 | NUR ---
Discharge Planning: dp sent LTC Referral to 7 facilities, possible dc tomorrow. [facility], [facility], [facility], [facility], [facility], [facility] and [facility]. Christie/Nurse nitza is going to call facilities.
[2019-03-09 19:50] VITALS: BP 148/75
--- NOTE | 2019-03-09 19:59 | NUR ---
ASSUMED CARE OF PT AT 0715. PT IS A&OX1-4 THROUGHOUT SHIFT, VITAL SIGNS ARE STABLE. PT TOLERATES PO MEDICAITONS WHOLE WITH HONEY THICK LIQUIDS. TRANSFERS WITH 1 PERSON MOD ASSIST WITH GAIT BELT AND WALKER, HELMET ON WHEN OUT OF BED. PICC TO RUE FLUSHES AND RETURNS APPROPRIATELY, DRESSING C/D/I, SITE IS W/O DRAINAGE, REDNESS, OR EDEMA. PT WAS INCREASINGLY LETHARGIC THIS SHIFT AND FREQUENTLY REQUIRED NAPS. PARTICIPATED IN SCHEDULED THERAPIES. CODE STATUS CHANGED TO NO CODE. PT ON SEIZURE PRECAUTIONS FOR HX OF SEIZURES AND FREQUENTLY ATTEMPTED TO REMOVE PADS FROM BED RAILS. PT EDUCATED ABOUT SEIZURE PRECAUTIONS, COMMUNICATED UNDERSTANDING, REQUIRES REINFORCEMENT. ACCU CHECKS BID AND MANAGED WITH PO MEDICATIONS. FALL PRECAUTIONS IN PLACE AND NURSING WILL CONTINUE TO MONITOR.
--- NOTE | 2019-03-10 05:13 | NUR ---
PATIENT ALERT AND ORIENTED X4 WHEN ASSESSED. HAS RDL PICC. LIKES MEDS WITH PUDDING. REMAINS IN SEIZURE PRECAUTIONS, RAILS PADDED. UP TO BSC WITH ASSIST OF 1-2. DENIES PAIN. SLEPT OFF AND ON DURING NIGHT.
--- NOTE | 2019-03-10 07:49 | NUR ---
CM RECEIVED PHONE CALL FROM [facility], THEY CAN NOT ACCEPT PER ADMINISTRATION RT PT NEEDS FOR MORE SURGERY AND TO MET HER NEEDS. RECEIVED VOICE MESSAGE FROM PT SON NATO WHO STATED THEY WERE STILL OUT LOOKING AT LTC FACILITY AND [facility] WOULD BE 1ST CHOICE, WOULD LIKE KEEP MOM CLOSE BY[facility]. CM TEAM TO SENT MORE REFERRAL FOR LTC. ANTICIPATION OF EARLY DC THIS WEEK TO LTC.
[2019-03-10 08:34] VITALS: BP 136/71
--- NOTE | 2019-03-10 10:47 | NUR ---
ASSUMED CARES AT 0700. PT VERY SLEEPY AND LETHARGIC. ORIENTED TO SELF ONLY. VITALS REMAIN STABLE. PT DENIES PAIN. LS CLEAR, SATS >93% ON RA. PT REMAINS ON ASPIRATION PRECAUTIONS, PILLS ADMINISTERED ONE AT A TIME IN PUDDING, PT TOLERATED WELL. MONITORING CONTINUES WITH MEALS, CHECKING FOR POCKETING. CONTINUES TO HAVE LEFT SIDED WEAKNESS. UP WITH 1-2 MIN ASSIST PIVOT TRANSFERS. PT HAD 2 LOOSE STOOLS THIS AM, ABDOMEN IS SOFT AND OBESE, BS ACTIVE *4. SEIZURE PRECAUTIONS IN PLACE, HELMET ON WHEN IN CHAIR OR WITH ACTIVITIES. FREQUENT VISUAL CHECKS. CALL LIGHT WITHIN REACH. FALL PRECAUTIONS IN PLACE
--- NOTE | 2019-03-10 11:48 | NUR ---
REFERRAL SENT TO [facility] ON PATIENT.
--- NOTE | 2019-03-10 12:08 | NUR ---
spoke with son catrachito who stated he would not stay in some of there facility i checked out yesterday. [facility], [facility] would be our choices.
--- NOTE | 2019-03-10 14:12 | NUR ---
team meeting, recommendation: medical issues being assessed per md, cont to look at various ltc facility from admission.
[2019-03-10 19:14] VITALS: BP 138/83
--- NOTE | 2019-03-11 03:32 | NUR ---
ASSUMED CARE OF PT AT 1915. PT IS ALERT AND ORIENTED TO PERSON, LETHARGIC, RESTLESS, AND CONFUSED, VITAL SIGNS ARE STABLE. PT REQUIRES MAX 2 PERSON ASSIST TO TRANSFER, PT IS FREQENTLY UNABLE TO BEAR WEIGHT. PT'S [id number] CALLED EARLIER IN SHIFT AND REPORTED SEEING PT EXHIBITING TREMORS IN RIGHT HAND, LETHARGIC, CHANGES IN RESPIRATORY PATTERNS, AND DROOLING. NURSING ASSESSED PT AND FOUND PATIENT WAS MORE LETHARGIC THAN BASELINE, BUT DID NOT NOTE ANY TREMORS, CHANGES IN RESPIRATORY PATTERNS OR PT DROOLING. NURSING FREQENTLY MONITORING PT DURING SHIFT FOR CHANGES. PT IS SLEEPING IN BED WITH PERIODS OF RESTLESSNESS. PT TOLERATED PO MEDICATIONS WHOLE WITH PUDDING AND NECTAR THICK LIQUIDS. SEIZURE PRECAUTIONS IN PLACE FOR HX OF SEIZURES. FALL PRECAUTIONS IN PLACE AND NURSING WILL CONTINUE TO MONITOR.
[2019-03-11 07:55] VITALS: BP 125/67
[2019-03-11 10:00] LABS: HEMATOCRIT 32.1 % (37.0-47.0); HEMOGLOBIN 10.8 gm/dL (12.0-15.0); MCH 31.3 pg (26.0-34.0); MCHC 33.6 g/dL (28.0-37.0); MCV 93.3 fL (80.0-100.0); PLATELET COUNT 202 thou/uL (150-400); RBC 3.43 mil/uL (4.20-5.00); RDW 14.6 % (10.5-14.5); WBC 5.3 thou/uL (4.0-11.0)
[2019-03-11 10:11] LABS: CALCIUM 10.1 mg/dL (8.5-10.1); CREATININE 1.2 mg/dL (0.6-1.0); MAGNESIUM 1.4 mg/dL (1.8-2.4); POTASSIUM 4.1 mmol/L (3.5-5.1)
[2019-03-11 10:40] LABS: ABSOLUTE NEUTROPHILS 2.6 thou/uL (1.4-8.2); MYELOCYTES 1 %
[2019-03-11 10:41] LABS: ANISOCYTOSIS 1+
--- NOTE | 2019-03-11 12:49 | NUR ---
Assumed pt care at 7am.Pt was lethargic but arousable.Assessment completed. vss.Mg today was 1.4.[facility] inpatient services director roundedm on pt and order noted.Mag replaced and ivf initiated.1 dose of rocephin was given for uti.Dc to snf was postphoned till am.condominium manager updated pt's son via phone.Repositioned pt q2h in bed for comfort.Pt took all am meds with pudding but refused supplement and breakfast. Speech therapist assisted ot with lunch.Pt in bed sound asleepat present. Will continue to monitor.
--- NOTE | 2019-03-11 13:27 | NUR ---
Nutrition: pt seen per followup on rehab unit. Continues on pureed diet with honey thick liquids. Prior intake was averaging 50% of meals and pt continued to receive the ensure pudding [id number] intake recorded. Was to D/C however became lethargic and is now dx with UTI. ST working with pt today and eating little due to current condition. Continueing NMES. No new weight since 02/17. Follow for improved intake with improvd MAXI. Continue low risk.
--- NOTE | 2019-03-11 14:03 | NUR ---
DC to alf care on hold today due to UTI and low mag. Mag being replaced and pt started on IV atb and IVF. Laundry Presser spoke with the pt's son Lucio. He indicates that the family have talked and toured several facilities. They would prefer [facility] in [place]. Bed availability and acceptance confirmed with [facility] in admissions. They can accept the pt as a alf care admission. Clinical updated provided. Dc anticipated in 1-2 days. They will f/u with Lucio regarding any admission paperwork. Today's progress notes, dpoa/ad document and 124C faxed to admissions. Care team, pt and family are aware of the anticipated dc plan. Will follow.
[2019-03-11 20:00] VITALS: BP 139/68
[2019-03-12 08:30] VITALS: BP 148/62
--- NOTE | 2019-03-12 09:59 | NUR ---
Admissions at [facility] updated. No dc today. 124C is on the chart. Will follow.
[2019-03-12] MEDS ORDERED: ACIDOPHILUS1 EAC4 PO (14:54)
[2019-03-12] MEDS ORDERED: GABAPENTIN 100100 MG PO (14:54)
[2019-03-12] MEDS ORDERED: MAGOX 400400 MG PO (14:54)
[2019-03-12] MEDS ORDERED: NEURONTIN 300300 M1 PO (14:54)
[2019-03-12] MEDS ORDERED: DEPAKOTE500 MG PO (14:54)
[2019-03-12] MEDS ORDERED: LEVAQUIN 500 M500 M2 PO (14:54)
--- NOTE | 2019-03-12 16:46 | NUR ---
Assumed care approx. 0700 this AM. Oriented to person only. Impulsive at times (occassionally tries to get out of bed or wheelchair alone). Patient noted to be slightly argumentative when not wanting to eat lunch. Swallow precautions in place. Patient was lethargic this morning and not wanting to open eyes when eating breakfast, but by end of the meal speech and occupational therapy were able to wake her up some. The patient swallowed pills well one at a time with pudding. The patient has been dependent on being fed her meals and her pills. Adequate intake of breakfast (finished ensure pudding too), but only about 5% of lunch eaten and refused ensure pudding. Patient refused lunch and didn't want to open her eyes. Will monitor dinner intake and chart in I&O's. No pain noted all shift. Patient incontinent of bowel and urine today, but occassionally yelled out at time of urination. Urine appeared to be dark yellow and very cloudy. IV rocephin administered and IV fluids still infusing per orders. Patient still very weak and was a MAX assist of 2-3 people with a walker, wheelchair, and gait belt. The patient didn't show much motivation to work with physical therapy and told PT no at one point today. Fall precautions in place. Slow progress on plan of care goals.
[2019-03-12 19:30] VITALS: BP 110/63
--- NOTE | 2019-03-13 02:30 | NUR ---
ASSUMED CARE OF PT AT 1915. PT IS A&O TO SELF & PLACE. PT IS ON ROOM AIR. IS STABLE & CURRENTLY SLEEPING. PT APPEARED AGITATED & WAS IMPULSIVE AT THE START OF THE SHIFT. THIS NURSE PROVIDED THERAPUETIC COMMUNICATION & REORIENTED PT TO SITUATION. PT REPEATEDLY STATED "I WANT TO GO HOME. YOU ALL ARE TRYING TO KEEP ME HERE". LABS & VITALS REVIEWED. FALL & SEIZURE PRECAUTIONS & HOURLY ROUNDING MAINTAINED. PT IS ABLE TO MOVE SELF IN BED. IS NEAR NURSE STATION. FREQUENT CHECKS. FLUIDS INFUSING & FLUIDS ENCOURAGED. CALL CHATO PINEDO. WILL CONTINUE TO MONITOR.
[2019-03-13 05:01] LABS: HEMATOCRIT 31.6 % (37.0-47.0); HEMOGLOBIN 10.5 gm/dL (12.0-15.0); MCH 31.2 pg (26.0-34.0); MCHC 33.3 g/dL (28.0-37.0); MCV 93.6 fL (80.0-100.0); PLATELET COUNT 204 thou/uL (150-400); RBC 3.37 mil/uL (4.20-5.00); RDW 15.2 % (10.5-14.5); WBC 5.1 thou/uL (4.0-11.0)
[2019-03-13 05:11] LABS: CALCIUM 9.2 mg/dL (8.5-10.1); CREATININE 0.9 mg/dL (0.6-1.0); MAGNESIUM 1.4 mg/dL (1.8-2.4); POTASSIUM 3.9 mmol/L (3.5-5.1)
[2019-03-13 07:25] LABS: ABSOLUTE NEUTROPHILS 2.6 thou/uL (1.4-8.2); MYELOCYTES 3 %
[2019-03-13 07:26] LABS: ANISOCYTOSIS SLIGHT; LARGE PLATELETS OCCASIONAL; POIKILOCYTOSIS SLIGHT
[2019-03-13 08:57] VITALS: BP 151/93
--- NOTE | 2019-03-13 10:38 | NUR ---
DISCHARGE PLANNING. ANTICIPATED DISCHARGE TO [facility]. CLINICAL INFORMATION FAXED TO JOSE [facility]NIGHT CREDIT AND COLLECTION MANAGER, VERIFIED RECEIVED. FOLLOWING TO ASSIST WITH DISCHARGE NEEDS.
--- NOTE | 2019-03-13 14:07 | NUR ---
No dc today. Pt will likely be ready to dc to ltc at [facility] on Saturday. All parties updated. [facility] is holding a bed for her.
--- NOTE | 2019-03-13 18:47 | NUR ---
ASSUMED CARE OF PT AT 0700. SLEPT WELL LAST NIGHT PER NIGHT RN.PT IS ALERT AND ORIENTED TO PERSON, LETHARGIC, RESTLESS, AND CONFUSED, VITAL SIGNS ARE STABLE THIS AM. PT REQUIRES MAX 2 PERSON ASSIST TO TRANSFER PT IS SLEEPING IN BED WITH PERIODS OF RESTLESSNESS. PT TOLERATED PO MEDICATIONS WHOLE WITH HONEY THICK LIQUIDS. SEIZURE PRECAUTIONS IN PLACE FOR HX OF SEIZURES. INCONT B &B ONCE WHILE SHE WAS SLEEPING. COOPERATIVE WHILE SHE WAS AWAKE. UP TO DINNING ROOM FOR BREAKFAST. RESTED IN BED AFTER WORKING WITH ST THIS AM. SLEPT THROUGH LUNCH TIME, BUT WAS UP AFTER HAD INCONT BM. ATE 50% WITH INSPECTOR AIDE. AND WAS UP FOR PHYSICAL THERAPIST AFTER THAT. FAMILY CAME TO VISIT 2X. ALBERT CALLED[facility] AND SAID PT WILL BE DC TO LTC ON NEXT SATURDAY. CONTINUE TO BE ON IV ABT FOR UTI. PICC LINE ON RIGHT UPPER ARM INTACT. CONTINUE TO BE ON NS AT 125ML/HR. FALL PRECAUTIONS IN PLACE. GIVE REPORT TO NIGHT NURSE TO CONTINUE TO MONITOR.
[2019-03-13 19:50] VITALS: BP 148/77
--- NOTE | 2019-03-14 03:05 | NUR ---
ASSUMED CARE OF PT AT 1915. PT IS ALERT AND ORIENTED TO PERSON ONLY, VITAL SIGNS ARE STABLE. PT IS RESTLESS AND WAS MOANING LOUDLY UNTIL APPROXIMATELY 0000. PT CONTINUES TO BE RESTLESS BUT IS NOT CALLING OUT OR ATTEMPTING TO GET OUT OF BED AT THIS TIME. TOELRATED HS MEDICAITONS WHOLE IN [facility]. DOUBLE LUMEN PICC IN RIGHT UPPER ARM IS INFUSING IV FLUIDS WITHOUT PROBLEMS, DRESSING IS C/D/I, SITE IS WITHOUT REDNESS, DRAINAGE, OR EDEMA. PT REPORTED PAIN IN HER BACK EARLY IN SHIFT AND WAS GIVEN PO PAIN MEDICAITONS. FALL PRECAUTIONS IN PLACE AND NURSING WILL CONTINUE TO MONITOR.
[2019-03-14 08:30] VITALS: BP 138/67
[2019-03-14 16:06] VITALS: BP 122/66
--- NOTE | 2019-03-14 18:33 | NUR ---
ASSUMED CARE OF PT AT 0700. ORIENTED TO PERSON, LETHARGIC, RESTLESS, AND CONFUSED AND HALLUCINATION USUAL. PT WAS SLEEPY IN BED MOST OF THE TIME BUT AWAKE NOW FOR DINNER. PT TOLERATED PO MEDICATIONS WHOLE WITH [place] AND HONEY THICK LIQUIDS. SEIZURE PRECAUTIONS IN PLACE FOR HX OF SEIZURES. OFFERED TOILETING INCONT B &B ONCE WHILE SHE WAS SLEEPING. PT ABLE TO ASK TO CLEAN UP WHEN SHE HAD ACCIDENT. HAD 2X LOOSE STOOL D/T ON IV ABT FOR UTI. PT IS AWAKE NOW. FAMILY AT BEDSIDE. SHE IS GOOD SPIRIT NOW. COOPERATIVE WHILE SHE WAS AWAKE AND ABLE TO FEED HERSELF FOR LUNCH AND NOW. PICC LINE ON RIGHT UPPER ARM INTACT. CONTINUE TO BE ON NS AT 125ML/HR. OFFERED SUPPORTIVE CARE. ENCOURAGED PT AND FAMILY TO VOICE THEIR NEEDS. REASSESSMENT PER CHART. FALL PRECAUTIONS IN PLACE. GIVE REPORT TO NIGHT NURSE TO CONTINUE TO MONITOR.
[2019-03-14 19:30] VITALS: BP 147/74
--- NOTE | 2019-03-15 03:04 | NUR ---
ASSUMED CARE @ 1900, RECEIVED REPORT FROM OFFGOING DAY NURSE. VS STABLE, HRRR LUNG SOUNDS COURSE ON EXPIRATION, BS NORMOACTIVE X 4 Q. FAMILY @ BEDSIDE BM ON BEDPAN SOFT, BROWN. LIQUIDS HONEY THICK. DOES NOT CARE FOR THICKENED WATER, PREFERS THICKENED TEA. NS RUNNING @ 125/HR, PEREPHERAL LINE IN R UPPER ARM C/D/I NO REDNESS OR INDURATION NOTED. RIGHT HAND STRONG, LEFT HAND FLACID. ACCEPTED MEDS X1 IN [facility] WITH RESISTANCE. KEPT SAYING, IT IS LIKE SWOLLOWING A CHESTNUT, YOU TRY AND SWOLLOW MY MEDICINE. INCONTINENT CARE GIVEN. SEIZURE PRECAUTIONS IN PLACE, BED IN LOW POSITION, CALL LIGHT WITHIN REACH, BED ALARM ACTIVATED, ONE HOUR CHECKS FOR PATIENT SAFETY.
[2019-03-15 09:18] VITALS: BP 141/70
--- NOTE | 2019-03-15 12:36 | NUR ---
ASSUMED CARE OF PT AT 0715. PT IS A&OX2-3 HAS PERIODS OF SIGNIFICANT CONFUSION, AGITATION, RESTLESSNESS, AND HALLUCINATIONS. WHEN PATIENT IS A&O SHE IS ABLE TO TRANSFER AND AMBULATE WITH MINIMAL ASSISTANCE BUT DOES DROP WEIGHT WITHOUT WARNING AND REQUIRES 2 PERSON ASSISTANCE FOR SAFETY. HELMET ON WHEN OUT OF BED. PICC LINE IN UPPER RIGHT ARM IS RUNNING FLUIDS APPROPRAITELY, DRESSING C/D/I, SITE W/O REDNESS, DRAINAGE, OR EDEMA. PT REFUSING HONEY THICK LIQUIDS AND SPAT AM MEDICATIONS IN PUDDING OUT AT THE NURSE THIS AM BECAUSE NURSING WOULD ONLY OFFER HONEY THICK LIQUIDS. NURSE ATTEMPTED TO OFFER A VARIETY OF FLUIDS THAT COULD BE THICKENED TO THE CORRECT CONSISTANCY, BUT PT CONTINUED TO REFUSE. FAMILY AT BEDSIDE MID MORNING AND REPORTED THAT THEY ARE AWARE OF PLAN FOR PT TO D/C TO LTC IN AM. SEIZURE PRECAUTIONS IN PLACE FOR HX OF SEIZURES. FALL PRECAUTIONS IN PLACE AND NURSING WILL CONTINUE TO MONITOR.
[2019-03-15 16:18] VITALS: BP 130/74
[2019-03-15 19:15] VITALS: BP 127/63
--- NOTE | 2019-03-16 01:39 | NUR ---
PATIENT IS ALERT X 1, IS FORGETFUL AT TIMES. WILL BE DC IN AM TO LTC FACILITY. UP TO BATHROOM WITH 1 PERSON ASSIST WITH HELMET ON WHILE OUT OF BED. IS ON A HONET THICKEN DIET 2 GM NA DIET. ENCOURGED TO DRINK MORE FLUIDS. TAKES MED WHOLE IN PUDDING AND SWOLLOWS WELL. DID NOT REFUSE HER MED LAST NIGHT. ON ROOM AIR. LUNGS CTA-DISM. IS A FALL RISK. ACC BID. RIGHT UPPER ARM PICC WITH 2 PORTS 1 HAS NS AT 125CC/HOUR. SITE HEALTHY. ALSO GETTING ANTIBIOTICS. NO WOUNDS NOTED. SEIZURE PRECAUTIONS WITH PADS ON BED, PATIENT SOME TIMES TAKE THEM OFF. DISCUSSED WITH HER TO LEAVE THEM ON DUE TO SEIZURE PRECAUTIONS, NO SEIZURES THIS ADMISSION. HAS A UTI, GETTING ANTIBIOTICS FOR UTI. HAD A BRAIN INJURY 6 MONTHS AGO. DOES LET HER NEEDS KNOWN. CONT PLAN OF CARE.
[2019-03-16 04:48] VITALS: BP 158/88
--- NOTE | 2019-03-16 05:22 | NUR ---
PATIENT ALARM GOING OFF AT 0435 AND RN WENTTO ROOM AND PATIENT WAS FOUND LAYING ON THE FLOOR. 3 STAFF MEMBERS GOT HER UP. PATIENT STATED" I FELL " PATIENT WAS ATTEMPTING TO PUT DOWN THE SIDE RAIL. PATIENT VERY CONFUSED AND WAS LOOKING FOR HER LAPTOP. HAS A DIME SIZE ABRASION ON LEFT BACK SIDE OF HER HEAD. PLACED IN W/C AND REMAINS CONFUSED BUT ANSWERS QUESTIONS APPROPRIATELY. SON CALLED ABOUT FALL, ALSO HENRY NOTIFIED AND RECEIVED NO ORDERS. [employer] SALES REPRESENTATIVE NOTIFIED RIGHT AFTER FALL. DENIES ANY PAIN OR INJURY. POST FALL ASSESSMENT DONEAT 0535. VS STABLE. HELMET ON WHILE IN W/C.SITTING IN W/C WITH STAFF FOR PATIENT SAFETY.
[2019-03-16 05:35] VITALS: BP 151/89
--- NOTE | 2019-03-16 05:40 | NUR ---
PATIENT FALL WAS UNWITNESSED, WAS CONFUSED AT TIME OF FALL. NOTIFIED AND SON NATO. ABRASION ON LEFT SIDE OF BACK OF HEAD. HENRY NOTIFIED OF SLIGHT ELEVATED BP ON 1 HOUR POST FALL ASSESSMENT AND VS. CONTINUE TO MONITOR AND REPORT JAYLA CHANGES.
--- NOTE | 2019-03-16 06:32 | NUR ---
ALL FALL INTERVENTIONS WERE IN PLACE AT TIME OF FALL.
--- NOTE | 2019-03-16 06:34 | NUR ---
PATIENT REFUSED TO HAVE IV FLUIDS INFUSING AFTER FALL.
[2019-03-16 08:00] VITALS: BP 152/92
--- NOTE | 2019-03-16 09:57 | NUR ---
dp ORDERED cHART COPY FOR PATIENT WHO IS PROJECTED TO NM TODAY TO [facility], NURSE RECOMMENDS AN AMBULANCE RIDE. pATIENT FELL LAST NIGHT SO HAD A HEAD SCAN TODAY, AWAITING RESULTS.
--- NOTE | 2019-03-16 16:53 | NUR ---
ASSUMED CARE OF PT AT 0715. PT IS ALERT AND ORIENTED X1-3 BUT HAS FREQUENT PERIODS OF CONFUSION, AGITATION, AND HALLUCINATIONS. HEAD CT THIS MORNING DUE TO FALL EARLY THIS MORNING. NEUROCHECKS COMPETED AND PATIENT IS AT W/O SIGNIFICANT CHANGES. TOLERATED PO MEDICAITONS WHOLE WITH PUDDING AND HONEY THICK LIQUIDS. REFUSED IV FLUIDS, BUT DID ALLOW FOR IV ANTIBIOTICS. DUE TO FALL D/C DELAYED UNTIL TOMORROW, FAMILY NOTIFIED. ORDERS OBTAINED TO D/C IV FLUIDS, IV ANTIBIOTICS, AND PICC LINE. ACCU CHECKS BID AND MANAGED WTIH PO MEDICAITONS. HELMET ON WHEN OUT OF BED, SEIZURE PRECAUTIONS IN [place] FOR HX OF SEIZURE. FALL PREACAUTIONS IN PLACE AND NURSING WILL CONTINUE TO MONITOR.
[2019-03-16 20:05] VITALS: BP 150/62
--- NOTE | 2019-03-17 00:55 | NUR ---
ASSESSMENT: PT REMAIN ALERT AND ORIENT TIMES TWO. LOTS OF CONFUSION TO PLACE AND TIME. PT REMAINED SAFE THROUGH OUT THE NIGHT. BED ALARM SET. TOOK ALL MEDS WITH PUDDING WELL AND DRUNK A THICKENED TEA. VSS, AFEBRILE. INCONT TIMES ONCE, BRIEF TAKEN OFF DURING THE NIGHT. UP TO BSC WITH GB/WALKER/2 ASSIST. SLOW PROGRESS TOWARDS DC GOALS. POSSIBLE DC TO SNU TOMORROW. WILL CONTINUE TO MONITOR.
[2019-03-17 07:45] VITALS: BP 148/69
[2019-03-17] MEDS ORDERED: REMERON 30 MG T30 M1 PO (08:57)
[2019-03-17] MEDS ORDERED: OLANZAPINE ODT5 MG PO (08:57)
[2019-03-17] MEDS ORDERED: CALCIUM 600 +1 EA13 PO (08:57)
[2019-03-17] MEDS ORDERED: NYAMYC15 GM TOP (08:57)
--- NOTE | 2019-03-17 13:02 | NUR ---
team meeting, cont with dc to ltc today. no concerns voiced by family or pt. will cont following as needed for dc needs.
--- NOTE | 2019-03-17 20:27 | NUR ---
ASSUMED CARE OF PT AT 0715. PT IS A&OX2-3 WITH FREQUENT PERIODS OF LETHARGY AND CONFUSION, VITAL SIGNS ARE STABLE. PATIENT WAS UPSET ABOUT NOT BEING ALLOWED THIN LIQUIDS AT MORNING MEDICAITON PASS AND REFUSED HER MORNING MEDS IN PUDDING BECASUE HER MOUTH WAS DRY AND DRINKING THE THICKENED LIQUIDS WAS "MAKING IT WORSE". SEIZURE PRECAUTIONS IN PLACE FOR HX OF SEIZURES. PT TRANSFERS WITH 1-2 PERSON ASSIST WITH GAIT BELT TO BEDSIDE COMMODE AND W/C. PLANS FOR D/C THIS SHIFT AND REPORT WAS CALLED TO PILAR AT LTC FACILITY. D/C PAPERWORK SIGNED BY FAMILY. FAMILY REMOVED BELONGINGS FROM PT ROOM AND PT WAS TRANSFERED BY STRETCHER TO LTC FACILITY AT APPROXIMATELY 1445.
== END 2019-03-17 15:56 | DRG 70 ==
PROVIDERS: Nurse Practitioner; Psychiatry & Neurology Psychiatry; ADMIT Physical Medicine & Rehabilitation
DX: G93.41 Metabolic encephalopathy (principal); J96.02 Acute respiratory failure with hypercapnia; J96.01 Acute respiratory failure with hypoxia; N39.0 Urinary tract infection, site not specified; G40.909 Epilepsy, unspecified, not intractable, without status epilepticus; R13.10 Dysphagia, unspecified; G81.94 Hemiplegia, unspecified affecting left nondominant side; G47.33 Obstructive sleep apnea (adult) (pediatric); E66.01 Morbid (severe) obesity due to excess calories; F32.9 Major depressive disorder, single episode, unspecified; F41.9 Anxiety disorder, unspecified; F01.50 Vascular dementia, unspecified severity, without behavioral disturbance, psychotic disturbance, mood disturbance, and anxiety; M10.9 Gout, unspecified; E11.9 Type 2 diabetes mellitus without complications; E87.8 Other disorders of electrolyte and fluid balance, not elsewhere classified; G25.81 Restless legs syndrome; E83.42 Hypomagnesemia; R33.9 Retention of urine, unspecified; I10 Essential (primary) hypertension; B96.1 Klebsiella pneumoniae [K. pneumoniae] as the cause of diseases classified elsewhere; R26.9 Unspecified abnormalities of gait and mobility; E87.6 Hypokalemia; Z68.38 Body mass index [BMI] 38.0-38.9, adult
CPT/HCPCS: 10112

== ENCOUNTER 2019-03-22 15:33 | Inpatient (IN) | payer OTHER ==
[~2019-03-22] VITALS: Ht 157.5 cm; Wt 89.8 kg
[2019-03-22 15:33] VITALS: BP 133/64
[~2019-03-22 15:33] MED LIST changes: +ACIDOPHILUS1 EAC4 PO; +CALCIUM 600 +1 EA13 PO; +DEPAKOTE500 MG PO; +ENOXAPARIN40 MG/0.1 SUBQ; +GABAPENTIN 100100 MG PO; +LEVAQUIN 500 M500 M2 PO; +MAGOX 400400 MG PO; +NEURONTIN 300300 M1 PO; +NYAMYC15 GM TOP; +REMERON 30 MG T30 M1 PO
[2019-03-22 17:14] LABS: HEMATOCRIT 39.3 % (37.0-47.0); HEMOGLOBIN 13.1 gm/dL (12.0-15.0); MCH 31.3 pg (26.0-34.0); MCHC 33.3 g/dL (28.0-37.0); MCV 94.1 fL (80.0-100.0); PLATELET COUNT 226 thou/uL (150-400); RBC 4.18 mil/uL (4.20-5.00); RDW 16.5 % (10.5-14.5); WBC 6.5 thou/uL (4.0-11.0)
[2019-03-22 17:21] LABS: CALCIUM 9.6 mg/dL (8.5-10.1); CREATININE 1.1 mg/dL (0.6-1.0)
[2019-03-22 17:22] LABS: POTASSIUM 4.9 mmol/L (3.5-5.1)
--- NOTE | 2019-03-22 17:44 | NUR ---
TEST SKEIN WINDER HAVING A HARD TIME GETTING IV ACCESS
[2019-03-22 17:47] LABS: ANISOCYTOSIS 1+; POLYCHROMASIA OCCASIONAL
[2019-03-22] MEDS ORDERED: LOPERAMIDE 2 MG2 M1 PO (18:08)
[2019-03-22] MEDS ORDERED: ZOFRAN ODT4 MG PO (18:08)
[2019-03-22 18:32] LABS: URINE BILIRUBIN NEGATIVE (Negative); URINE BLOOD NEGATIVE (Negative); URINE CLARITY CLEAR; URINE COLOR YELLOW; URINE GLUCOSE-RANDOM* NEGATIVE (Negative); URINE KETONES TRACE (Negative); URINE LEUKOCYTES-REFLEX TRACE (Negative); URINE NITRITE-REFLEX NEGATIVE (Negative); URINE PROTEIN (DIPSTICK) TRACE (Negative); URINE SPECIFIC GRAVITY 1.025 (1.005-1.035); URINE UROBILINOGEN 0.2 E.U./dl (0.2-1.0)
[2019-03-22] MEDS ORDERED: FLAGYL500 M1 PO (19:45)
[2019-03-22] MEDS ORDERED: CEFDINIR300 MG PO (19:45)
[2019-03-22 20:27] LABS: ALBUMIN 3.1 g/dL (3.4-5.0); DIRECT BILIRUBIN < 0.1 mg/dL (<0.1-0.3); SGOT 43 U/L (15-37); SGPT 23 U/L (30-65); TOTAL BILIRUBIN 0.3 mg/dL (<0.1-1.0); TOTAL PROTEIN 7.3 g/dL (6.4-8.2)
[2019-03-22 22:06] VITALS: BP 137/78
[2019-03-22 22:23] VITALS: BP 142/83
[2019-03-22] MEDS ORDERED: DEPAKOTE500 MG PO (23:08)
[2019-03-22] MEDS ORDERED: GABAPENTIN 100100 MG PO (23:09)
[2019-03-22] MEDS ORDERED: NEURONTIN 300300 M1 PO (23:09)
[2019-03-22] MEDS ORDERED: MAGOX 400400 MG PO (23:10)
[2019-03-22] MEDS ORDERED: REMERON 30 MG T30 M1 PO (23:11)
[2019-03-22] MEDS ORDERED: ACIDOPHILUS1 EAC4 PO (23:11)
[2019-03-22] MEDS ORDERED: ZYPREXA 5 MG TAB5 M1 PO (23:13)
[2019-03-22] MEDS ORDERED: CALCIUM 600 +1 EAC1 PO (23:14)
[2019-03-22] MEDS ORDERED: NYAMYC15 GM TOP (23:14)
[2019-03-22] MEDS ORDERED: AMLODIPINE BESY10 MG PO (23:15)
[2019-03-22] MEDS ORDERED: REQUIP 1 MG TABL1 M1 PO (23:16)
[2019-03-22] MEDS ORDERED: ALLOPURINOL 10100 M1 PO (23:16)
[2019-03-22] MEDS ORDERED: SYNTHROID137 MC1 PO (23:18)
[2019-03-22] MEDS ORDERED: METFORMIN HCL500 MG PO (23:18)
[2019-03-22] MEDS ORDERED: COZAAR 25 MG TA25 M1 PO (23:20)
[2019-03-22] MEDS ORDERED: SINGULAIR 10 MG10 M1 PO (23:20)
[2019-03-22] MEDS ORDERED: COREG6.25 MG PO (23:21)
[2019-03-22] MEDS ORDERED: ATROVENT HFA14 GM INH (23:21)
[2019-03-22] MEDS ORDERED: TYLENOL325 MG PO (23:22)
[2019-03-22] MEDS ORDERED: VIMPAT200 MG PO (23:22)
[2019-03-22] MEDS ORDERED: OLANZAPINE2.5 MG PO (23:23)
[2019-03-22] MEDS ORDERED: PEPCID20 MG PO (23:24)
--- NOTE | 2019-03-23 03:09 | NUR ---
PT ARRIVED ON UNIT FROM ER AT 2230. FROM [facility] AND ADMITTED WITH [facility]. ACCORDING TO [facility] PT HAD ONE BOUT OF DIARRHEA YESTERDAY. DENIES PAIN. DENIES NAUSEA. VOIDING PER BEDPAN. RESTING COMFORTABLY. NO NEEDS VOICED. CALL LIGHT WITHIN REACH. WILL CONTINUE TO PROVIDE FREQUENT OBSERVATION.
[2019-03-23 05:28] VITALS: BP 159/81
[2019-03-23 06:42] LABS: HEMATOCRIT 35.4 % (37.0-47.0); HEMOGLOBIN 11.8 gm/dL (12.0-15.0); MCH 31.3 pg (26.0-34.0); MCHC 33.3 g/dL (28.0-37.0); MCV 94.1 fL (80.0-100.0); RBC 3.76 mil/uL (4.20-5.00); RDW 15.9 % (10.5-14.5)
[2019-03-23 06:55] LABS: CALCIUM 8.8 mg/dL (8.5-10.1); CREATININE 0.8 mg/dL (0.6-1.0)
[2019-03-23 07:03] LABS: POTASSIUM 3.7 mmol/L (3.5-5.1)
[2019-03-23 08:10] VITALS: BP 144/71
--- NOTE | 2019-03-23 14:42 | NUR ---
ASSUMED CARE OF PT AT 0700. ASSESSMENT CHARTED. PT SLEEPING AND DROWSY THIS AM. MORE AWAKE AND ALERT THIS AFTERNOON, ANSWERS ALL ORIENTATION QUESTIONS APPROPRIATELY X4. DENIES PAIN. NO STOOLS NOTED YET. NPO AT BEGINNING OF SHIFT, ADVANCED TO FULL LIQUIDS PER GI. ACHS, NO INSULIN GIVEN PER SLIDING SCALE. C.DIFF RESULTS NEGATIVE. SON NATO CALLED ON THE PHONE FOR UPDATES. VSS. WILL CONTINUE TO MONITOR.
[2019-03-23 15:30] VITALS: BP 116/65
--- NOTE | 2019-03-23 16:13 | NUR ---
INITIAL ASSESSMENT: Pt evaluated for d/c planning needs. Reviewed chart and spoke with nurse, pt, pt's son and admissions representative at facility. Pt was hospitalized at [facility] rehab last month and went to [facility] on March 17. production material coordinator at facility said they are holding pt's bed. SPoke with son Lucio and he plans on pt returning to facility on d/c. WIll remain available to assist as needed.
[2019-03-23 18:57] VITALS: BP 96/46
[2019-03-24 03:38] VITALS: BP 128/66
--- NOTE | 2019-03-24 04:05 | NUR ---
PATIENT ALERT AND ORIENTED X4. AT BEGINNING OF SHIFT SHE WAS VERY DROWSY. LATER SHE BECAME MORE ALERT. WAS ABLE TO GET HER TO TAKE A LITTLE OVER 2 GLASSES OF GO-LYTE PREP. SHE COULD NOT DRINK IT FROM A STRAW NOR COULD SHE DRINK FROM THE GLASS. WHEN ANDREW TRIED TI DRINK FROM THE GLASS IN WENT DOWN THE FRONT OF HER. IT HAD TO BE SPOON FED TO HER. SOMETIMES SHE WOULD JUST NOT OPEN HER MOUTH FOR YOU OR WAVE YOU AWAY WITH HER HAND, STILL OTHER TIMES SHE WOULD SPIT IT OUT. TOLD THIS HELPDESK MANAGER THAT SHE WAS NOT MUCH OF A DRINKER, EVEN IF IT WAS GOOD. NO RESULTS HAVE BEEN SEEN FROM WHAT SHE DID DRINK. SHE SLEPT VERY LITTLE THIS SHIFT. DENIES PAIN.
[2019-03-24 08:01] VITALS: BP 103/50
--- NOTE | 2019-03-24 11:56 | NUR ---
PT DROWSEY TODAY. IV INTACT IN L AC. PT UNABLE TO DRINK GOLYTELY FOR PREP AND COLONOSCOPY, AND GI LAB AWARE. WILL HOLD AM MEDS PER GI LAB. BLOOD SUGAR WNL. WILL CONT POC.
[2019-03-24 17:15] VITALS: BP 132/74
[2019-03-24 19:20] VITALS: BP 141/61
[2019-03-25 05:42] VITALS: BP 161/88
[2019-03-25 05:54] LABS: HEMATOCRIT 33.4 % (37.0-47.0); HEMOGLOBIN 11.3 gm/dL (12.0-15.0); MCH 31.5 pg (26.0-34.0); MCHC 33.8 g/dL (28.0-37.0); MCV 93.3 fL (80.0-100.0); RBC 3.58 mil/uL (4.20-5.00); RDW 15.4 % (10.5-14.5)
[2019-03-25 05:58] LABS: CALCIUM 8.3 mg/dL (8.5-10.1); CREATININE 0.7 mg/dL (0.6-1.0); POTASSIUM 3.5 mmol/L (3.5-5.1)
[2019-03-25 07:10] VITALS: BP 135/71
[2019-03-25 09:32] VITALS: BP 135/71
--- NOTE | 2019-03-25 13:26 | NUR ---
PT A&O3, CONFUSED AT TIMES. IV INTACT IN L AC. PT C/O L WRIST PAIN STATES SHE GOT IT CAUGHT IN ANOTHER PATIENTS W/C AT THE ASSISTED. TOLERATING PUREED DIET WELL. L WRIST X RAY ORDERED. PLANS ARE FOR PT TO RETURN TO [facility] TODAY.
[2019-03-25] MEDS ORDERED: CIPRO500 MG PO (14:14)
[2019-03-25] MEDS ORDERED: FLAGYL500 M1 PO (14:15)
--- NOTE | 2019-03-25 15:26 | NUR ---
Pt dcing back to ltc are [facility] in [place]. They have arranged a w/c van to transport the pt around 3:30 -4pm. Dc menu planner has faxed the orders and notified the pt's son. Nursing is call report and a chart copy is ready to be sent with the pt. Case closed.
--- NOTE | 2019-03-25 18:30 | NUR ---
DC ORDERS RECEIVED. IV REMOVED FROM L AC, TRANSPORTATION PICKED UP PT BY CART. REPORT CALLED TO JOSE DAVID GAVE REPORT TO GARY.
== END 2019-03-25 16:59 | DRG 392 ==
LOC: ER 15:33 → EROBS 20:10 → 4E 20:10
PROVIDERS: Emergency Medicine; Nurse Practitioner Family; ADMIT Hospitalist
DX: K52.9 Noninfective gastroenteritis and colitis, unspecified (principal); E11.9 Type 2 diabetes mellitus without complications; M10.9 Gout, unspecified; E78.5 Hyperlipidemia, unspecified; J45.909 Unspecified asthma, uncomplicated; I10 Essential (primary) hypertension; E03.9 Hypothyroidism, unspecified; G89.29 Other chronic pain; M54.9 Dorsalgia, unspecified; G47.33 Obstructive sleep apnea (adult) (pediatric); M79.7 Fibromyalgia; Z66 Do not resuscitate; K76.0 Fatty (change of) liver, not elsewhere classified; Z87.820 Personal history of traumatic brain injury; Z90.49 Acquired absence of other specified parts of digestive tract; Z79.899 Other long term (current) drug therapy
CPT/HCPCS: 10084; 10183

== ENCOUNTER 2019-04-04 10:38 | Emergency (ER) | payer OTHER ==
[~2019-04-04] VITALS: Ht 170.2 cm; Wt 113.4 kg
[~2019-04-04 10:38] MED LIST changes: +ATROVENT HFA14 GM INH; +CALCIUM 600 +1 EAC1 PO; +CEFDINIR300 MG PO; +CIPRO500 MG PO; +COZAAR 25 MG TA25 M1 PO; +FLAGYL500 M1 PO; +LOPERAMIDE 2 MG2 M1 PO; +OLANZAPINE2.5 MG PO; +TYLENOL325 MG PO; +VIMPAT200 MG PO; +ZOFRAN ODT4 MG PO; +ZYPREXA 5 MG TAB5 M1 PO
[2019-04-04 11:33] LABS: ABSOLUTE NEUTROPHILS 4.9 thou/uL (1.4-8.2); BASOPHILS 0.8 % (0.0-2.0); EOSINOPHILS 0.3 % (0.0-3.0); HEMATOCRIT 33.9 % (37.0-47.0); HEMOGLOBIN 11.8 gm/dL (12.0-15.0); LYMPHOCYTES 22.9 % (24.0-44.0); MCH 31.9 pg (26.0-34.0); MCHC 34.8 g/dL (28.0-37.0); MCV 91.7 fL (80.0-100.0); MONOCYTES 6.3 % (1.0-8.0); PLATELET COUNT 331 thou/uL (150-400); POLYS 69.7 % (36.0-66.0); RDW 15.4 % (10.5-14.5)
[2019-04-04 11:51] LABS: ANION GAP 13 mmol/L (7-16); BUN 17 mg/dL (7-18); CALCIUM 8.4 mg/dL (8.5-10.1); CHLORIDE 106 mmol/L (98-107); CO2 26 mmol/L (21-32); CREATININE 1.4 mg/dL (0.6-1.0); GLUCOSE 125 mg/dL (74-106); POTASSIUM 3.1 mmol/L (3.5-5.1); SODIUM 145 mmol/L (136-145)
[2019-04-04 11:57] LABS: ALBUMIN 3.1 g/dL (3.4-5.0); DIRECT BILIRUBIN < 0.1 mg/dL (<0.1-0.3); SGOT 11 U/L (15-37); SGPT 11 U/L (30-65); TOTAL BILIRUBIN 0.3 mg/dL (<0.1-1.0); TOTAL PROTEIN 7.2 g/dL (6.4-8.2)
[2019-04-04 12:20] LABS: URINE BLOOD NEGATIVE (Negative); URINE CLARITY CLEAR; URINE COLOR YELLOW; URINE GLUCOSE-RANDOM* NEGATIVE (Negative); URINE KETONES NEGATIVE (Negative); URINE LEUKOCYTES-REFLEX NEGATIVE (Negative); URINE NITRITE-REFLEX NEGATIVE (Negative); URINE PROTEIN (DIPSTICK) 1+ (Negative); URINE SPECIFIC GRAVITY 1.025 (1.005-1.035); URINE UROBILINOGEN 0.2 E.U./dl (0.2-1.0)
[2019-04-04 12:22] LABS: ICTOTEST (BILI CONFIRMATORY) Negative (Negative); URINE BILIRUBIN NEGATIVE (Negative)
[2019-04-04 12:28] LABS: AMP/METHAMP Negative (Negative); BARBITURATES Negative (Negative); BENZODIAZEPINES POSITIVE (Negative); COCAINE Negative (Negative); METHADONE Negative (Negative); OPIATES Negative (Negative); PCP Negative (Negative)
[2019-04-04 12:38] LABS: BACTERIA-REFLEX None Seen /HPF (None Seen); HYALINE CASTS 0-3 Few /LPF (None Seen); MUCUS >6 Heavy strn/LPF (None Seen); SQUAMOUS 0-3 Few /LPF (0-3); URINE RBC 0-2 Rare /HPF (0-2)
[2019-04-04 12:39] LABS: AMORPHOUS URATES Few /LPF (None Seen)
[2019-04-04 18:32] VITALS: BP 139/71
== END 2019-04-04 18:48 | disposition home or self-care (01) ==
LOC: ER 10:38
PROVIDERS: Emergency Medicine
DX: R56.9 Unspecified convulsions (principal); E11.9 Type 2 diabetes mellitus without complications; M10.9 Gout, unspecified; E78.5 Hyperlipidemia, unspecified; M79.7 Fibromyalgia; J45.909 Unspecified asthma, uncomplicated; I10 Essential (primary) hypertension; E05.90 Thyrotoxicosis, unspecified without thyrotoxic crisis or storm; M54.9 Dorsalgia, unspecified; G89.29 Other chronic pain; G47.33 Obstructive sleep apnea (adult) (pediatric)

== ENCOUNTER 2019-04-06 20:42 | Emergency (ER) | payer OTHER ==
[~2019-04-06] VITALS: Ht 167.6 cm; Wt 102.1 kg
[2019-04-06 21:12] LABS: BASOPHILS 0.5 % (0.0-2.0); EOSINOPHILS 0.3 % (0.0-3.0); HEMATOCRIT 37.5 % (37.0-47.0); HEMOGLOBIN 12.9 gm/dL (12.0-15.0); LYMPHOCYTES 18.3 % (24.0-44.0); MCH 31.3 pg (26.0-34.0); MCHC 34.3 g/dL (28.0-37.0); MONOCYTES 3.4 % (1.0-8.0); POLYS 77.5 % (36.0-66.0); RBC 4.12 mil/uL (4.20-5.00); RDW 15.2 % (10.5-14.5); WBC 10.3 thou/uL (4.0-11.0)
[2019-04-06 21:13] LABS: PLATELET COUNT 254 thou/uL (150-400)
[2019-04-06 21:17] LABS: CALCIUM 8.9 mg/dL (8.5-10.1); CREATININE 0.8 mg/dL (0.6-1.0)
[2019-04-06 21:23] LABS: ALBUMIN 2.8 g/dL (3.4-5.0); TOTAL BILIRUBIN 0.2 mg/dL (<0.1-1.0); TOTAL PROTEIN 6.7 g/dL (6.4-8.2)
[2019-04-06 22:24] LABS: URINE BILIRUBIN NEGATIVE (Negative); URINE BLOOD NEGATIVE (Negative); URINE CLARITY SL CLOUDY; URINE COLOR YELLOW; URINE GLUCOSE-RANDOM* NEGATIVE (Negative); URINE KETONES NEGATIVE (Negative); URINE LEUKOCYTES-REFLEX NEGATIVE (Negative); URINE PROTEIN (DIPSTICK) 1+ (Negative); URINE SPECIFIC GRAVITY 1.025 (1.005-1.035); URINE UROBILINOGEN 0.2 E.U./dl (0.2-1.0)
[2019-04-06 22:31] LABS: URINE NITRITE-REFLEX POSITIVE (Negative)
[2019-04-06 22:34] LABS: BACTERIA-REFLEX >30 Many /HPF (None Seen); CRYSTALS None Seen /LPF (None Seen); HYALINE CASTS 0-3 Few /LPF (None Seen); MUCUS 0-3 Light strn/LPF (None Seen); SQUAMOUS 0-3 Few /LPF (0-3); URINE RBC 0-2 Rare /HPF (0-2); WBC CLUMPS Rare (None Seen)
[2019-04-06] MEDS ORDERED: KEFLEX500 M1 PO (22:42)
[2019-04-06] MEDS ORDERED: POTASSIUM20 PO (23:39)
[2019-04-07 00:23] VITALS: BP 129/93
== END 2019-04-07 00:32 | disposition home or self-care (01) ==
LOC: ER 20:42
PROVIDERS: Physician Assistant
DX: G40.909 Epilepsy, unspecified, not intractable, without status epilepticus (principal); E87.6 Hypokalemia; N39.0 Urinary tract infection, site not specified; I10 Essential (primary) hypertension; M10.9 Gout, unspecified; J45.909 Unspecified asthma, uncomplicated; E78.5 Hyperlipidemia, unspecified; M79.7 Fibromyalgia; E05.90 Thyrotoxicosis, unspecified without thyrotoxic crisis or storm; E11.9 Type 2 diabetes mellitus without complications; G89.29 Other chronic pain; Z87.820 Personal history of traumatic brain injury; Z79.899 Other long term (current) drug therapy

== ENCOUNTER 2019-04-10 08:22 | Inpatient (IN) | payer OTHER ==
[~2019-04-10] VITALS: Ht 30.5 cm; Wt 105.6 kg
[~2019-04-10 08:22] MED LIST changes: +KEFLEX500 M1 PO; +POTASSIUM20 PO
[2019-04-10 08:23] VITALS: BP 147/106
[2019-04-10 08:55] LABS: URINE BLOOD NEGATIVE (Negative); URINE CLARITY CLEAR; URINE COLOR YELLOW; URINE GLUCOSE-RANDOM* NEGATIVE (Negative); URINE KETONES 1+ (Negative); URINE LEUKOCYTES-REFLEX TRACE (Negative); URINE NITRITE-REFLEX NEGATIVE (Negative); URINE PROTEIN (DIPSTICK) 1+ (Negative); URINE SPECIFIC GRAVITY 1.025 (1.005-1.035); URINE UROBILINOGEN 0.2 E.U./dl (0.2-1.0)
[2019-04-10 09:03] LABS: ICTOTEST (BILI CONFIRMATORY) Negative (Negative); URINE BILIRUBIN NEGATIVE (Negative)
[2019-04-10 09:04] LABS: AMP/METHAMP Negative (Negative); BARBITURATES Negative (Negative); BENZODIAZEPINES Negative (Negative); COCAINE Negative (Negative); METHADONE Negative (Negative); OPIATES Negative (Negative); PCP Negative (Negative)
[2019-04-10 09:06] LABS: ABSOLUTE NEUTROPHILS 7.5 thou/uL (1.4-8.2); BASOPHILS 0.5 % (0.0-2.0); EOSINOPHILS 0.2 % (0.0-3.0); HEMATOCRIT 37.2 % (37.0-47.0); HEMOGLOBIN 12.6 gm/dL (12.0-15.0); LYMPHOCYTES 15.4 % (24.0-44.0); MCHC 33.7 g/dL (28.0-37.0); MCV 91.9 fL (80.0-100.0); MONOCYTES 4.4 % (1.0-8.0); PLATELET COUNT 264 thou/uL (150-400); POLYS 79.5 % (36.0-66.0); RBC 4.05 mil/uL (4.20-5.00); RDW 14.9 % (10.5-14.5); WBC 9.4 thou/uL (4.0-11.0)
[2019-04-10 09:13] LABS: CALCIUM 9.2 mg/dL (8.5-10.1); POTASSIUM 3.2 mmol/L (3.5-5.1)
[2019-04-10 09:19] LABS: ALBUMIN 2.9 g/dL (3.4-5.0); TOTAL BILIRUBIN 0.3 mg/dL (<0.1-1.0); TOTAL PROTEIN 7.6 g/dL (6.4-8.2)
[2019-04-10 09:48] LABS: HYALINE CASTS 0-3 Few /LPF (None Seen); SQUAMOUS 0-3 Few /LPF (0-3); URINE RBC 0-2 Rare /HPF (0-2); URINE WBC-REFLEX 6-15 Few /HPF (0-5)
[2019-04-10 09:49] LABS: CRYSTALS None Seen /LPF (None Seen)
[2019-04-10 10:04] LABS: BACTERIA-REFLEX 1-9 Few /HPF (None Seen)
[2019-04-10 16:12] VITALS: BP 171/83
--- NOTE | 2019-04-10 16:50 | NUR ---
FIRST ATTEMPT TO CALL REPORT AT THIS TIME, PER ELVIRA FAIR, ACCEPTING NURSE TO CALL BACK WHEN AVAILABLE.
[2019-04-10 17:21] VITALS: BP 171/95
[2019-04-10 18:30] LABS: CALCIUM 9.1 mg/dL (8.5-10.1); POTASSIUM 3.2 mmol/L (3.5-5.1)
--- NOTE | 2019-04-10 19:35 | NUR ---
pt adimitted from ED , pt is AxO X2 ( person and place), pt can floow commands, pt's vs are stable , pt is continuing iv fliud , pt has poor eating at dinner time, RN has reported to next shift RN to keep eye on pt and pt's lab results.
[2019-04-11 04:17] LABS: ABSOLUTE NEUTROPHILS 4.5 thou/uL (1.4-8.2); BASOPHILS 0.4 % (0.0-2.0); EOSINOPHILS 0.6 % (0.0-3.0); HEMATOCRIT 31.9 % (37.0-47.0); HEMOGLOBIN 10.9 gm/dL (12.0-15.0); LYMPHOCYTES 27.6 % (24.0-44.0); MCH 31.6 pg (26.0-34.0); MCHC 34.3 g/dL (28.0-37.0); MCV 92.3 fL (80.0-100.0); MONOCYTES 5.5 % (1.0-8.0); PLATELET COUNT 203 thou/uL (150-400); POLYS 65.9 % (36.0-66.0); RBC 3.46 mil/uL (4.20-5.00); WBC 6.9 thou/uL (4.0-11.0)
[2019-04-11 04:25] VITALS: BP 156/99
[2019-04-11 04:35] LABS: CALCIUM 9.3 mg/dL (8.5-10.1); CREATININE 0.8 mg/dL (0.6-1.0); MAGNESIUM 1.6 mg/dL (1.8-2.4)
[2019-04-11 07:41] VITALS: BP 177/104
--- NOTE | 2019-04-11 08:36 | NUR ---
progress pt alert and vocal yells out and moans but settles down with just going into room to talk. vss, ivf's infusing as ordered. potassium still low this am down to 3 new orders obtained by day nurse Delfino incontinent of bowel and bladder 3 episodes last night continue to monitor.
[2019-04-11 16:54] VITALS: BP 153/103
[2019-04-11 17:52] LABS: CALCIUM 9.7 mg/dL (8.5-10.1); CREATININE 0.8 mg/dL (0.6-1.0); MAGNESIUM 1.7 mg/dL (1.8-2.4); POTASSIUM 4.1 mmol/L (3.5-5.1)
--- NOTE | 2019-04-11 18:14 | NUR ---
pt is A&OX 2 ( person and place), pt is confused sometimes, pt is on o2 2L/MIN/NC, PT's vs and o2sat are stable at this time,RN has called dr to report pt's abnormal Lab results, and pt has diffiult swallow, new order received , kcl 60 MEQ IVP running over 6hr for K 3.0, MAGNESIUM SULFATE 2 G IVP running over 2hr for mag 1.7, pt starts NPO and PPN IV @ 80ml/hr, RN has update pt's imformation to pt's family, RN has called dr again to report recheck lab results ( k 4.1, mag 1.7 ) at 1800pm, new order receved, RN will report to next shift to keep eye on pt and follow DR ORDER.
[2019-04-11 19:42] VITALS: BP 194/101
[2019-04-11 23:56] VITALS: BP 176/81
[2019-04-12 03:53] VITALS: BP 153/85
--- NOTE | 2019-04-12 05:45 | NUR ---
patient is alert and oriented. patient is npo till speech therapy see her on saturday. there is fear patient is aspirating. patient is on 1Lnc. patient on ppn for nutrients in the mean time and medications that are able have been changed to iv. 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 patient is pending flap replacement on saturday. 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 patients lbm was the 24th. patient is incontent. patient is q2turn. patient is q6h accucheck. patient is resting comfortably in bed. patient is progressing to goals. patients pain is treated with medication. patient had a slight temp this shift. wcm. patient is progressing to goals.
[2019-04-12 07:28] VITALS: BP 146/92
[2019-04-12 07:31] LABS: CALCIUM 9.3 mg/dL (8.5-10.1); CREATININE 0.7 mg/dL (0.6-1.0); MAGNESIUM 1.6 mg/dL (1.8-2.4); POTASSIUM 3.5 mmol/L (3.5-5.1)
[2019-04-12 16:10] VITALS: BP 163/98
--- NOTE | 2019-04-12 17:39 | NUR ---
ASSUMED CARE OF PT AT 0700. PT AOX2-3, FORGETFUL, IN NO ACUTE DISTRESS. OCCASIONALLY COMPLAINING OF BILAT SHOULDER PAIN - SOME RELIEF WITH TYLENOL SUPP. NPO UNTIL SPEECH EVAL TOMORROW. FAMILY AT BEDSIDE, ASKING MANY QUESTIONS ABOUT PG TUBE PLACEMENT - DEFERRED TO PHYSICIAN. INCONTINENT OF BOWEL/BLADDER. NYSTATIN APPLIED TO TORRI AREA. SEIZURE PRECAUTIONS IN PLACE. PT PROGRESSING TOWARD POC GOALS.
[2019-04-12 19:47] VITALS: BP 182/94
[2019-04-12 23:50] VITALS: BP 149/75
[2019-04-13 03:35] VITALS: BP 188/92
[2019-04-13 07:09] VITALS: BP 153/93
--- NOTE | 2019-04-13 14:41 | NUR ---
INITIAL ASSESSMENT: STAR reviewed chart and spoke with nursing and attending physician. Pt was admitted from [facility] due to seizure activity. 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 Neurosurgery was done at [facility]. Per chart, pt has an appt [place] [facility] [place] with neurosurgery. Pt to have swallow evaluation to determine if she may need a peg tube. STAR met with pt at bedside. Introduced role of STAR. Pt is alert/orientated to self and place. Pt with slurred speech and requests SW contact her son, Lucio, for info. STAR spoke with Lucio via phone. Lucio states that family will discuss with pt the need for a peg tube if needed. Pt is NPO. Lucio confirms that plan is for pt to return to [place]. liaison planner to fax info to [place] for review. Per chart, pt may need to transfer to [facility] [place]. STAR is following to assist as needed with discharge planning.
--- NOTE | 2019-04-13 14:43 | NUR ---
DISCHARGE PLANNING. PATIENT IS A RESIDENT AT [facility]. PLAN IS FOR PATIENT TO RETURN TO [place] ONCE PATIENT IS MEDICALLY READY. CLINICAL INFORMATION FAXED TO JOSE DAVID KNIGHT. FOLLOWING TO ASSIST WITH DISCHARGE.
--- NOTE | 2019-04-13 15:54 | NUR ---
ASSUMED CARE AT SHIFT CHANGE, PATIENT ALERTR TO SELF. VSS, Q2 POSITIONED FOR COMFORT AND NEEDED. SPOKE WITH CLIFORD PATIENT DPOA AND HE IS OK FOR HIS MOTHER TO PUT ON A DIET PER ST. ST NOTIFIED. AND WILL CONTINUE WITH POC.
[2019-04-13 16:12] VITALS: BP 163/82
[2019-04-13 19:31] VITALS: BP 168/92
--- NOTE | 2019-04-14 02:59 | NUR ---
ASSUMED CARE FROM DAY SHIFT PT CONFUSED TO SITUATION , SON AT [facility] AND TALKING WITH PT, PT YELLING OUT THAT SHE WANTS TO AND ASKING LALO TO TAKE HER AWAY. SURFACING TECHNICIAN CALLED HALDOL GIVEN AND PT REPOSITION AND TORRI CARE GIVEN, PT THEN EGAB TO BE LESS AGITATED AND STARTED TO FALL ASLEEP. PT RESTED WELL THROUGHOUT HOURLY ROUNDS, WILL CONITNUE WITH CURRENT PLAN OF CARE AND WILL REPORT CHANGES OR ABNORMAL FINDINGS.
[2019-04-14 04:59] VITALS: BP 163/85
[2019-04-14 08:27] VITALS: BP 167/86
--- NOTE | 2019-04-14 13:25 | NUR ---
ON-GOING ASSESSMENT: CM REVIEWED CHART. PATIENT IS TO HAVE BONE FLAP SURGERY DONE TOMORROW AT [facility] 04/15/[place]. PT IS CURRENTLY NPO AND AWAITING TO ADDRESS WHETHER OR NOT SHE WILL NEED A PEG. PER ST ASSESSMENT SON AND PT WANT TO WAIT UNTIL AFTER HER BONE FLAP SURGERY TO ADDRESS THE ISSUE OF DYSPHAGIA AND WHETHER OR NOT SHE WILL NEED A PEG. ALBERT SPOKE WITH ATTENDING AND PLANS ARE TO TRY AND TRANSFER PT TO [facility] IN PREPARATION FOR HER SURGERY TOMORROW. ALBERT CONTACTED THE [facility] TRANSFER LINE [phone] TO REQUEST TRANSFER TO [facility]. ALBERT ALSO SPOKE WITH BED COORDINATOR KEMAR AT [facility] AND ALL INFORMATION WAS FAXED TO THEM AT [phone]. ALBERT CONTACTED RADIOLOGY TO HAVE IMAGES CLOUDED OVER. CHART COPY WAS ORDERED AND ALBERT NOTIFIED RUG DRY ROOM ATTENDANT. KEMAR FROM [facility] STATES SHE HAS AN ACCEPTING HOSPITALIST DR. LEYDA KHUORY AND HER NEUROSURGEON IS DR. LOPEZ. SHE REPORTS THEY WILL ACCEPT PATIENT AND ARE CURRENTLY WAITING ON A BED TO OPEN UP TODAY. ALBERT NOTIFIED [employer] WHO IS HELPING ASSIST WITH [employer] FOR[employer] IN PREPARTION FOR TRANSFER. ALBERT ALSO SPOKE WITH PATIENTS DANISHA DUTTON TO UPDATE. ALBERT ALSO PROVIDED TRANSFER FORM TO BEDSIDE RN WHICH WILL NEED TO BE COMPLETED PRIOR TO TRANSFER AND A COPY SAVE FOR OUR CHART RECORDS. ALBERT WILL CONTINUE TO FOLLOW.
--- NOTE | 2019-04-14 15:12 | NUR ---
PATIENT REMAINS NPO THIS SHIFT, PPN IN PLACE PER ORDERS. PATIENT MOVING SELF IN BED. REMINDED OF PRECAUTIONS TO HEAD. PATIENT ABLE TO COMMUNICATE WITH STAFF AND UNDERSTAND NEEDS. PATIENT BLOOD GLUCOSE MONITORED PER ORDERS. PATIENT INQUIRED ABOUT BLOOD GLUCOSE AND EDUCATION PROVIDED ON PPN. PATIENT SEIZURE AND FALL PRECAUTIONS IN PLACE. PATIENT POTENTIALLY WILL TRANSFER TO [facility] THIS SHIFT OR FOLLOWING SHIFT.
[2019-04-14] MEDS ORDERED: HYDRALAZIN20 MG/1 ML IV PUSH (16:38)
[2019-04-14] MEDS ORDERED: ENOXAPARIN40 MG/0.1 SUBQ (16:38)
[2019-04-14] MEDS ORDERED: LEVOTHYROXINE100 MC1 IV PUSH (16:38)
[2019-04-14] MEDS ORDERED: DEPACON 50500 MG/51 IV (16:38)
[2019-04-14 16:50] VITALS: BP 161/101
== END 2019-04-14 19:17 | disposition short-term general hospital (02) | DRG 100 ==
LOC: ER 08:22 → EROBS 10:11 → 3W 17:22
PROVIDERS: Emergency Medicine; Nurse Practitioner; ADMIT Internal Medicine
PROC: 05HY33Z Insertion of Infusion Device into Upper Vein, Percutaneous Approach (ICD-10-PCS; principal; 2019-04-10)
DX: G40.909 Epilepsy, unspecified, not intractable, without status epilepticus (principal); J96.01 Acute respiratory failure with hypoxia; E87.0 Hyperosmolality and hypernatremia; E87.6 Hypokalemia; E83.42 Hypomagnesemia; E11.9 Type 2 diabetes mellitus without complications; M10.9 Gout, unspecified; E78.5 Hyperlipidemia, unspecified; M79.7 Fibromyalgia; J45.909 Unspecified asthma, uncomplicated; I10 Essential (primary) hypertension; E66.01 Morbid (severe) obesity due to excess calories; G89.29 Other chronic pain; M54.5 Low back pain; K76.0 Fatty (change of) liver, not elsewhere classified; E03.9 Hypothyroidism, unspecified; E05.90 Thyrotoxicosis, unspecified without thyrotoxic crisis or storm; G47.33 Obstructive sleep apnea (adult) (pediatric); Z87.820 Personal history of traumatic brain injury; Z90.49 Acquired absence of other specified parts of digestive tract; Z68.35 Body mass index [BMI] 35.0-35.9, adult; Z87.440 Personal history of urinary (tract) infections; Z79.84 Long term (current) use of oral hypoglycemic drugs; Z79.899 Other long term (current) drug therapy
CPT/HCPCS: 10879; 27000